=== PATIENT | male | born 1985 | race African-American/Black ===

== ENCOUNTER 2024-10-30 10:04 | Inpatient (IN) | payer BC, SELFPAY ==
[2024-10-30] VITALS (7 sets, daily range): BP systolic 118–146; BP diastolic 63–97; PULSE 61–87; RESP 14–20; TEMP 36.5–36.9; O2SAT 98–100
[2024-10-30 10:59] LABS: Glucose Point of Care > 500 mg/dl (65-105)
[2024-10-30 11:28] LABS: Base Excess ABG -6.1 mEq/l (+/-2.0); Carboxyhemoglobin 2.5 % THb (0-2.0); Fractional Inspired Oxygen 21 %; HCO3 ABG 19.4 mEq/l (22.0-26.0); Methemoglobin ABG 0.4 %THb (0-1.5); Oxygen Content ABG 21.5 %vol (16.0-22.0); Oxygen Saturation ABG 95.8 % (95.0-100.0); Oxyhemoglobin 92.2 % THb (90.0-100.0); PCO2 ABG 38.7 mmHg (35.0-45.0); PO2 ABG 85.4 mmHg (80.0-100.0); PO2 FiO2 Ratio Arterial Blood 4.07 %; Reduced Hemoglobin 4.9 %THb (0-5.0); Total Hemoglobin 16.6 g/dL (12.0-18.0); pH ABG 7.319 (7.350-7.450)
[2024-10-30 11:29] LABS: Device ROOM AIR; Modified Allen's Test Pass; Site Drawn RIGHT RADIAL
[2024-10-30] MEDS: Please add drug allergy info to patient profile. 1 EACH XX (11:29)
--- OUTSIDE RECORDS SUMMARY | 2024-10-30 11:30 | XMS_ITS | Data Portability ---
Author Organization [facility] BEAUNoam Rios Address [address] [place] [address] Care Team Providers Care Research Intern Name Role Phone AILYN METZGER Primary Care Provider Assessment No assessment recorded. Plan of Treatment Reminders Order Date Submit Date Provider Last Modified By Organization Details Last Modified Time Details Appointments ANY 15 2024 09:00A M Ailyn Metzger MD Not available Not available Not available Lab hsv (1+2) igg, serum 2023 024 [place] [facility], [address], [place], [address], 04/07/2024 11:15:26 urinalysi s macro (dipstick ) panel, urine 2023 024 [place] [facility], [address], [place], [address], 04/07/2024 09:14:31 basic metabolic 1998 panel, serum or plasma 2023 024 [place] [facility], [address], [place], [address], 04/07/2024 09:14:30 CBC w/ auto diff 2023 024 [place] [facility], [address], [place], [address], 02/26/2024 08:33:20 urinalysi s, dipstick 2023 024 [place] [facility] [address], [place], [address], 02/26/2024 08:33:19 CMP, serum or plasma 2023 024 [facility], [address], [place], [address], 02/26/2024 08:33:18 lipid panel, serum 2023 024 [facility], [address], [place], [address], 02/26/2024 08:33:17 HIV 1 + 2, meaningfu l use set 2023 024 [facility], [address], [place], [address], 02/29/2024 06:17:01 Hepatitis C IgG Ab, qual, serum 2023 024 [place] [facility], [address], [place], [address], 02/29/2024 06:16:56 chlamydia trachomat is + neisseria gonorrhoe ae + trichomon as vaginalis DNA panel, SHELBY+probe , unspecifi ed specimen 2023 024 [facility], [address], [place], [address], 02/29/2024 06:16:57 hsv (1+2) igg, serum 2023 024 [facility], [address], [place], [address], 02/29/2024 06:16:56 HBsAg (hepatiti s B surface Ag), EIA, serum 2023 024 [facility], [address], [place], [address], 02/29/2024 06:16:59 RPR (rapid plasma reagin), serum 2023 [facility], [address], [place], [address], 02/29/2024 06:16:59 HbA1c (hemoglob in A1c), blood 2023 [place] [facility], [address], [place], [address], 02/29/2024 06:16:58 albumin/c reatinine , mass ratio, urine 2023 [facility], [address], [place], [address], 02/29/2024 06:16:55 Referral orthopedi c surgeon referral - R. wrist pain 2023 [facility], [address], [place], [address], 08/18/2024 15:36:14 ophthalmo logist referral - Eye trauma 2023 [facility], [address], [place], [address], 03/21/2024 15:07:24 Procedures None recorded. Surgeries None recorded. Imaging None recorded. Medication Orders meloxicam 15 mg tablet 2023 [place] [id number], [address], [place], [id number], 04/06/2024 12:21:50 ofloxacin 0.3 % eye drops 2023 [place] [id number], [address], [place], [id number], 04/06/2024 11:28:23 Patient TargetsNo targets recorded. Patient Instructions Encounter Date Encounter Id Patient Instructions Last Modified By Organization Details Last Modified Time 02/25/2024 [id number] tetanus and diphtheria booster: care instructions oajao Not available 02/25/2024 11:04:29 Quitting Tobacco : Care Instructions oajao Not available 02/25/2024 11:04:29 ER report from [facility] Labs Ophthalmology Ofloxacin eye drops Stop smoking Stop EES ointment Dentist ER if his eye symptoms worsen over the weekend Follow up in 4-6 weeks oajao Not available 02/25/2024 11:21:50 04/06/2024 [id number] proteinuria: car e instructions oajao Not available 04/06/2024 12:14:38 Lab results from [facility] 02/20/2023 Xray and ER report from 02/2024 Labs Low fat, low cholesterol diet Follow up in 4 weeks oajao Not available 04/06/2024 12:24:23 Detailed discussion oajao Not available 04/06/2024 16:29:58 Reason for Referral Director Behavioral Health Referral for Pain of bilateral eyes Eye trauma Eye trauma Referring Physician: Ailyn Metzger, Internal Medicine, Encounter Date: 02/25/2024 Orthopedic Surgeon Referral for Pain of right wrist R. wrist pain R. wrist pain Referring Physician: Ailyn Metzger Internal Medicine, Encounter Date: 04/06/2024 Results Created Date Observation Date Name Description Value Unit Range Abnormal Flag Note LastModifiedBy Organization Detail LastModifiedTime 02/25/2002/26/2024 LIPID PANEL cholesterol, total 208 mg/dL 100-19 9 above high normal Not Available [facility] ([facility]) [address], [place], [address], 02/26/2024 08:33:17 02/25/20 24 02/26/2024 LIPID PANEL triglyceride s 90 mg/dL 0-149 Not Available [facility] ([facility]) [address] [facility], [place], [address], 02/26/2024 08:33:17 07/12/20 24 02/26/2024 LIPID PANEL HDL cholesterol 65 mg/dL >39 Not Available [facility]) [address] [place], [address], 02/26/2024 08:33:17 02/25/20 24 02/26/2024 LIPID PANEL VLDL cholesterol lawanda 16 mg/dL 5-40 Not Available [facility] ([facility]) [address] [place], [address], 02/26/2024 08:33:17 02/25/20 24 02/26/2024 LIPID PANEL LDL chol calc ([facility]) 127 mg/dL 0-99 above high normal Not Available [facility] ([facility]) [address] [facility], [place], [address], 02/26/2024 08:33:17 02/25/20 24 02/26/2024 COMP. METAB OLIC PANEL (14) glucose 100 mg/dL 70-99 above high normal Not Available [facility] ([facility]) [address] [place], [address], 02/26/2024 08:33:18 02/25/20 24 02/26/2024 COMP. METAB OLIC PANEL (14) BUN 17 mg/dL 6-20 Not Available [facility] ([facility]) [address] [place], [address], 02/26/2024 08:33:18 02/25/20 24 02/26/2024 COMP. METAB OLIC PANEL (14) creatinine 1.33 mg/dL 0.76-1 .27 above high normal Not Available [facility] ([facility]) [address] [place], [address], 02/26/2024 08:33:18 02/25/20 24 02/26/2024 COMP. METAB OLIC PANEL (14) eGFR 71 mL/mi n/1.7 3 >59 Not Available [facility] ([facility]) [address] [facility], [place], [address], 02/26/2024 08:33:18 02/25/20 24 02/26/2024 COMP. METAB OLIC PANEL (14) BUN/creatini ne ratio 13 9-20 Not Available [facility] ([facility]) [address], [place], [address], 02/26/2024 08:33:18 02/25/20 24 02/26/2024 COMP. METAB OLIC PANEL (14) sodium 142 mmol/ L 134-14 4 Not Available [facility] ([facility]) [address] [facility], [place], [address], 02/26/2024 08:33:18 02/25/20 24 02/26/2024 COMP. METAB OLIC PANEL (14) potassium 4.5 mmol/ L 3.5-5. 2 Not Available [facility] ([facility]) [address] [facility], [place], [address], 02/26/2024 08:33:18 02/25/20 24 02/26/2024 COMP. METAB OLIC PANEL (14) chloride 100 mmol/ L 96-106 Not Available [facility] ([facility]) [address] [facility], [place], [address], 02/26/2024 08:33:18 02/25/20 24 02/26/2024 COMP. METAB OLIC PANEL (14) carbon dioxide, total 24 mmol/ L 20-29 Not Available [facility] ([facility]) [address] [facility], [place], [address], 02/26/2024 08:33:18 02/25/20 24 02/26/2024 COMP. METAB OLIC PANEL (14) calcium 10.8 mg/dL 8.7-10 .2 above high normal Not Available [facility] ([facility]) [address] [facility], [place], [address], 02/26/2024 08:33:18 02/25/20 24 02/26/2024 COMP. METAB OLIC PANEL (14) protein, total 7.8 g/dL 6.0-8. 5 Not Available [facility] ([facility]) [address], [place], [address], 02/26/2024 08:33:18 02/25/20 24 02/26/2024 COMP. METAB OLIC PANEL (14) albumin 5.0 g/dL 4.1-5. 1 Not Available [facility] ([facility]) [address], [place], [address], 02/26/2024 08:33:18 02/25/20 24 02/26/2024 COMP. METAB OLIC PANEL (14) globulin, total 2.8 g/dL 1.5-4. 5 Not Available [facility] ([facility]) [address] [facility], [place], [address], 02/26/2024 08:33:18 02/25/20 24 02/26/2024 COMP. METAB OLIC PANEL (14) bilirubin, total 0.5 mg/dL 0.0-1. 2 Not Available [facility] ([facility]) [address] [facility], [place], [address], 02/26/2024 08:33:18 02/25/20 24 02/26/2024 COMP. METAB OLIC PANEL (14) alkaline phosphatase 69 IU/L 44-121 Not Available [facility] ([facility]) [address], [place], [address], 02/26/2024 08:33:18 02/25/20 24 02/26/2024 COMP. METAB OLIC PANEL (14) AST (SGOT) 22 IU/L 0-40 Not Available [facility] ([facility]) [address] [facility], [place], [address], 02/26/2024 08:33:18 02/25/20 24 02/26/2024 COMP. METAB OLIC PANEL (14) ALT (SGPT) 31 IU/L 0-44 Not Available [facility] ([facility]) [address] [facility] [facility], [place], [address], 02/26/2024 08:33:18 02/25/20 24 02/26/2024 MICRO SCOPI C EXAMI NATIO N WBC None seen /hpf 0-5 Not Available [facility] ([facility]) [address] [facility], [place], [address], 02/26/2024 08:33:18 02/25/20 24 02/26/2024 MICRO SCOPI C EXAMI NATIO N RBC None seen /hpf 0-2 Not Available [facility] ([facility]) [address] [facility], [place], [address], 02/26/2024 08:33:18 02/25/20 24 02/26/2024 MICRO SCOPI C EXAMI NATIO N epithelial cells (non renal) None seen /hpf 0-10 Not Available [facility] ([facility]) [address] [facility], [place], [address], 02/26/2024 08:33:18 02/25/20 24 02/26/2024 MICRO SCOPI C EXAMI NATIO N casts None seen /lpf nonese en Not Available [facility] ([facility]) [address] [facility], [place], [address], 02/26/2024 08:33:18 02/25/20 24 02/26/2024 MICRO SCOPI C EXAMI NATIO N bacteria None seen nonese en/few Not Available [facility] ([facility]) [address], [place], [address], 02/26/2024 08:33:18 02/25/20 24 02/26/2024 URINA LYSIS , ROUTI NE specific gravity >=1.03 0 1.005- 1.030 abnormal Not Available [facility] ([facility]) [address], [place], [address], 02/26/2024 08:33:19 02/25/20 24 02/26/2024 URINA LYSIS , ROUTI NE pH 5.5 5.0-7. 5 Not Available [facility] ([facility]) [address] [facility], [place], [address], 02/26/2024 08:33:19 02/25/20 24 02/26/2024 URINA LYSIS , ROUTI NE urine-color YELLOW yellow Not Available [facility] ([facility]) [address], [place], [address], 02/26/2024 08:33:19 02/25/20 24 02/26/2024 URINA LYSIS , ROUTI NE appearance CLEAR clear Not Available [facility] ([facility]) [address], [place], [address], 02/26/2024 08:33:19 02/25/20 24 02/26/2024 URINA LYSIS , ROUTI NE WBC esterase NEGATI VE negati ve Not Available [facility] ([facility]) [address], [place], [address], 02/26/2024 08:33:19 02/25/20 24 02/26/2024 URINA LYSIS , ROUTI NE protein 1+ negati ve/tra ce abnormal Not Available [facility] ([facility]) [address] [place], [address], 02/26/2024 08:33:19 02/25/20 24 02/26/2024 URINA LYSIS , ROUTI NE glucose NEGATI VE negati ve Not Available [facility] ([facility]) [address] [place], [address], 02/26/2024 08:33:19 02/25/20 24 02/26/2024 URINA LYSIS , ROUTI NE ketones NEGATI VE negati ve Not Available [facility] ([facility]) [address], [place], [address], 02/26/2024 08:33:19 02/25/20 24 02/26/2024 URINA LYSIS , ROUTI NE occult blood NEGATI VE negati ve Not Available [facility] ([facility]) [address], [place], [address], 02/26/2024 08:33:19 02/25/20 24 02/26/2024 URINA LYSIS , ROUTI NE bilirubin NEGATI VE negati ve Not Available [facility] ([facility]) [address], [place], [address], 02/26/2024 08:33:19 02/25/20 24 02/26/2024 URINA LYSIS , ROUTI NE urobilinogen ,semi-qn 0.2 mg/dL 0.2-1. 0 Not Available [facility] ([facility]) [address], [place], [address], 02/26/2024 08:33:19 02/25/20 24 02/26/2024 URINA LYSIS , ROUTI NE nitrite, urine NEGATI VE negati ve Not Available [facility] ([facility]) [address] [place], [address], 02/26/2024 08:33:19 02/25/20 24 02/26/2024 URINA LYSIS , ROUTI NE microscopic examination SEE BELOW: Micro scopi c was indic ated and was perfo rmed. Not Available [facility] ([facility]) [address] [place], [address], 02/26/2024 08:33:19 02/25/20 24 02/26/2024 CBC WITH DIFFE RENTI AL/PL ATELE T WBC 4.8 x10e3 /uL 3.4-10 .8 Not Available [facility] ([facility]) [address] [place], [address], 02/26/2024 08:33:20 02/25/20 24 02/26/2024 CBC WITH DIFFE RENTI AL/PL ATELE T RBC 5.43 x10e6 /uL 4.14-5 .80 Not Available [facility] ([facility]) [address], [place], [address], 02/26/2024 08:33:20 02/25/20 24 02/26/2024 CBC WITH DIFFE RENTI AL/PL ATELE T hemoglobin 17.2 g/dL 13.0-1 7.7 Not Available [facility] ([facility]) [address] [place], [address], 02/26/2024 08:33:20 02/25/20 24 02/26/2024 CBC WITH DIFFE RENTI AL/PL ATELE T hematocrit 50.2 % 37.5-5 1.0 Not Available [facility] ([facility]) [address] [place], [address], 02/26/2024 08:33:20 02/25/20 24 02/26/2024 CBC WITH DIFFE RENTI AL/PL ATELE T MCV 92 fL 79-97 Not Available [facility] ([facility]) [address] [place], [address], 02/26/2024 08:33:20 02/25/20 24 02/26/2024 CBC WITH DIFFE RENTI AL/PL ATELE T MCH 31.7 pg 26.6-3 3.0 Not Available [facility] ([facility]) [address] [place], [address], 02/26/2024 08:33:20 02/25/20 24 02/26/2024 CBC WITH DIFFE RENTI AL/PL ATELE T MCHC 34.3 g/dL 31.5-3 5.7 Not Available [facility] ([facility]) [address] [place], [address], 02/26/2024 08:33:20 02/25/20 24 02/26/2024 CBC WITH DIFFE RENTI AL/PL ATELE T RDW 12.4 % 11.6-1 5.4 Not Available [facility] ([facility]) [address], [place], [address], 02/26/2024 08:33:20 02/25/20 24 02/26/2024 CBC WITH DIFFE RENTI AL/PL ATELE T platelets 262 x10e3 /uL 150-45 0 Not Available [facility] ([facility]) [address] [facility], [place], [address], 02/26/2024 08:33:20 02/25/20 24 02/26/2024 CBC WITH DIFFE RENTI AL/PL ATELE T neutrophils 59 % notest ab. Not Available [facility] ([facility]) [address], [place], [address], 02/26/2024 08:33:20 02/25/20 24 02/26/2024 CBC WITH DIFFE RENTI AL/PL ATELE T lymphs 27 % notest ab. Not Available [facility] ([facility]) [address], [place], [address], 02/26/2024 08:33:20 02/25/20 24 02/26/2024 CBC WITH DIFFE RENTI AL/PL ATELE T monocytes 10 % notest ab. Not Available [facility] ([facility]) [address], [place], [address], 02/26/2024 08:33:20 02/25/20 24 02/26/2024 CBC WITH DIFFE RENTI AL/PL ATELE T eos 4 % notest ab. Not Available [facility] ([facility]) [address], [place], [address], 02/26/2024 08:33:20 02/25/20 24 02/26/2024 CBC WITH DIFFE RENTI AL/PL ATELE T basos 0 % notest ab. Not Available [facility] ([facility]) [address], [place], [address], 02/26/2024 08:33:20 02/25/20 24 02/26/2024 CBC WITH DIFFE RENTI AL/PL ATELE T neutrophils (absolute) 2.8 x10e3 /uL 1.4-7. 0 Not Available [facility] ([facility]) [address], [place], [address], 02/26/2024 08:33:20 02/25/20 24 02/26/2024 CBC WITH DIFFE RENTI AL/PL ATELE T lymphs (absolute) 1.3 x10e3 /uL 0.7-3. 1 Not Available [facility] ([facility]) [address], [place], [address], 02/26/2024 08:33:20 02/25/20 24 02/26/2024 CBC WITH DIFFE RENTI AL/PL ATELE T monocytes(ab solute) 0.5 x10e3 /uL 0.1-0. 9 Not Available [facility] ([facility]) [address], [place], [address], 02/26/2024 08:33:20 02/25/20 24 02/26/2024 CBC WITH DIFFE RENTI AL/PL ATELE T eos (absolute) 0.2 x10e3 /uL 0.0-0. 4 Not Available [facility] ([facility]) [address] [place], [address], 02/26/2024 08:33:20 02/25/20 24 02/26/2024 CBC WITH DIFFE RENTI AL/PL ATELE T baso (absolute) 0.0 x10e3 /uL 0.0-0. 2 Not Available [facility] ([facility]) [address] [place], [address], 02/26/2024 08:33:20 02/25/20 24 02/26/2024 CBC WITH DIFFE RENTI AL/PL ATELE T immature granulocytes 0 % notest ab. Not Available [facility] ([facility]) [address], [place], [address], 02/26/2024 08:33:20 02/25/20 24 02/26/2024 CBC WITH DIFFE RENTI AL/PL ATELE T immature grans (abs) 0.0 x10e3 /uL 0.0-0. 1 Not Available [facility] ([facility]) [address], [place], [address], 02/26/2024 08:33:20 02/25/20 24 02/26/2024 ALBUM IN/CR EATIN INE RATIO ,URIN E creatinine, urine 334.9 mg/dL notest ab. Not Available [facility] ([facility]) [address], [place], [address], 02/29/2024 06:16:55 02/25/20 24 02/26/2024 ALBUM IN/CR EATIN INE RATIO ,URIN E albumin, urine 83.1 ug/mL notest ab. Not Available [facility] ([facility]) [address], [place], [address], 02/29/2024 06:16:55 02/25/20 24 02/26/2024 ALBUM IN/CR EATIN INE RATIO ,URIN E alb/creat ratio 25 mg/g_ creat 0-29 Abena l: 0 - 29 Moder ately incre ased: 30 - 300 Sever odilia incre ased: >300 Not Available [facility] ([facility]) [address], [place], [address], 02/29/2024 06:16:55 02/25/20 24 02/26/2024 HCV ANTIB TANA hep C virus Ab NON REACTI VE nonrea ctive HCV antib tana alone does not diffe renti ate betwe en previ ously resol kely infec tion and activ e infec tion. Equiv ocal and React elida HCV antib tana resul ts shoul d be follo wed up with an HCV RNA test to suppo rt the diagn osis of activ e HCV infec tion. Not Available [facility] ([facility]) [address], [place], [address], 02/29/2024 06:16:56 02/25/20 24 02/26/2024 HSV 1 AND 2 AB, IGG hsv 1 IgG, type spec <0.91 index 0.00-0 .90 Negat elida <0.91 Equiv ocal 0.91 - 1.09 Posit elida >1.09 Note: Negat elida indic ates no antib odies detec gabriel to HSV-1 . Equiv ocal may sugge st early infec tion. If clini kelly appro priat e, retes t at later date. Posit elida indic ates antib odies detec gabriel to HSV-1 . Not Available [facility] ([facility]) [address] [facility], [place], [address], 02/29/2024 06:16:56 02/25/20 24 02/26/2024 HSV 1 AND 2 AB, IGG hsv 2 IgG, type spec 2.84 index 0.00-0 .90 above high normal Negat elida <0.91 Equiv ocal 0.91 - 1.09 Posit elida >1.09 HSV-2 Antib tana Inter preta tion: Curre nt guide lines and recom menda tions do not recom mend routi ne scree rogelio for HSV-2 in asymp tomat ic indiv idual s, inclu ding those that are pregn ant. A negat elida antib tana resul t indic ates no detec table antib odies to HSV-2 were found . If recen t expos ure is suspe cted, retes t in 4 to 6 weeks . Equiv ocal sampl es shoul d be retes gabriel in 4 to 6 weeks . A posit elida resul t indic ates the prese nce of detec table IgG antib tana to HSV-2 . FALSE POSIT ELIDA RESUL TS MAY OCCUR . Repea t testi ng, or testi ng by a diffe mounikat darci coleman, may be indic ated in some setti ngs (e.g. patie nts with low likel ihood of HSV infec tion) . If clini kelly appro priat e, retes t 4 to 6 weeks later . HSV-2 IgG antib tana testi ng resul ts shoul d be clini kelly corre lated . Not Available [facility] ([facility]) [address] [place], [address], 02/29/2024 06:16:56 02/25/2002/29/2024 CT, NG, TRICH VAG BY SHELBY chlamydia by SHELBY NEGATI VE negati ve Not Available [facility] ([facility]) [address] [place], [address], 02/29/2024 06:16:57 02/25/20 24 02/29/2024 CT, NG, TRICH VAG BY SHELBY gonococcus by HSELBY NEGATI VE negati ve Not Available [facility] ([facility]) [address] [place], [address], 02/29/2024 06:16:57 02/25/20 24 02/29/2024 CT, NG, TRICH VAG BY SHELBY trich vag by SHELBY NEGATI VE negati ve Not Available [facility] ([facility]) [address] [place], [address], 02/29/2024 06:16:57 02/25/20 24 02/26/2024 HEMOG LOBIN A1C hemoglobin A1C 5.8 % 4.8-5. 6 above high normal Predi abete s: 5.7 - 6.4 Diabe gato: >6.4 Glyce kristin contr ol for adult s with diabe gato: <7.0 Not Available [facility] ([facility]) [address] [place], [address], 02/29/2024 06:16:58 02/25/20 24 02/26/2024 HBSAG SCREE N HBsAg screen NEGATI VE negati ve Not Available [facility] ([facility]) [address] [place], [address], 02/29/2024 06:16:58 02/25/20 24 02/26/2024 RPR, RFX QN RPR/C ONFIR M TP RPR REACTI VE nonrea ctive abnormal Not Available [facility] ([facility]) [address] [facility], [place], [address], 02/29/2024 06:16:59 02/25/20 24 02/26/2024 RPR QN+TP ABS RPR, quant. 1:2 titer nonrea <1:1 above high normal Not Available [facility] ([facility]) [address] [place], [address], 02/29/2024 06:17:00 02/25/20 24 02/26/2024 RPR QN+TP ABS interpretati on: Commen t [place] lis: RPR with Refle x to RPR Titer and Trepo nemal Antib odies , Tradi kosta l Scree rogelio and Diagn osis Algor ithm ----- ----- ----- ----- ----- ----- ----- ----- ----- ----- ----- ----- Trepo nemal RPR RPR, Qn Ab Final Inter preta tion ----- --- ----- ---- ----- ----- ----- ----- ----- ----- ---- Non N/A N/A No labor atory evide nce React elida of [place] lis. Retes t in 2-4 weeks if recen t expos ure us suspe cted. ----- --- ----- ---- ----- ----- ----- ----- ----- ----- ---- React elida >/=1: 1 Non Nontr epone mal antib odies React elida detec gabriel. [place] lis unlik odilia; biolo gical false posit elida possi ble. Retes t in 2-4 weeks if recen t expos ure is suspe cted. ----- --- ----- ---- ----- ----- ----- ----- ----- ----- ---- React elida >/=1: 1 React elida Trepo nemal and nontr epone mal antib odies detec gabriel. Consi stent with past or curre nt (pote ntial early ) syphi lis. Not Available [facility] ([facility]) [address] [place], [address], 02/29/2024 06:17:00 02/25/20 24 02/28/2024 RPR QN+TP ABS treponema pallidum antibodies Reacti ve nonrea ctive abnormal Not Available [facility] ([facility]) [address] [place], [address], 02/29/2024 06:17:00 02/25/20 24 02/26/2024 HIV AB/P2 4 AG WITH REFLE X HIV Ab/P24 Ag screen NON REACTI VE nonrea ctive HIV-1 /HIV- 2 antib odies and HIV-1 p24 antig en were NOT detec gabriel. There is no labor atory evide nce of HIV infec tion. HIV Negat elida Not Available [facility] ([facility]) [address] [place], [address], 02/29/2024 06:17:01 04/06/20 24 04/07/2024 BASIC METAB OLIC PANEL (7) glucose 90 mg/dL 70-99 Not Available [facility] ([facility]) [address] [place], [address], 04/07/2024 09:14:30 04/06/20 24 04/07/2024 BASIC METAB OLIC PANEL (7) BUN 18 mg/dL 6-20 Not Available [facility] ([facility]) [address] [facility], [place], [address], 04/07/2024 09:14:30 04/06/20 24 04/07/2024 BASIC METAB OLIC PANEL (7) creatinine 1.16 mg/dL 0.76-1 .27 Not Available [facility] ([facility]) [address] [facility], [place], [address], 04/07/2024 09:14:30 04/06/20 24 04/07/2024 BASIC METAB OLIC PANEL (7) eGFR 83 mL/mi n/1.7 3 >59 Not Available [facility] ([facility]) [address] [facility], [place], [address], 04/07/2024 09:14:30 04/06/20 24 04/07/2024 BASIC METAB OLIC PANEL (7) BUN/creatini ne ratio 16 9-20 Not Available [facility] ([facility]) [address] [facility], [place], [address], 04/07/2024 09:14:30 04/06/20 24 04/07/2024 BASIC METAB OLIC PANEL (7) sodium 141 mmol/ L 134-14 4 Not Available [facility] ([facility]) [address] [facility], [place], [address], 04/07/2024 09:14:30 04/06/20 24 04/07/2024 BASIC METAB OLIC PANEL (7) potassium 5.2 mmol/ L 3.5-5. 2 Not Available [facility] ([facility]) [address] [facility], [place], [address], 04/07/2024 09:14:30 04/06/20 24 04/07/2024 BASIC METAB OLIC PANEL (7) chloride 100 mmol/ L 96-106 Not Available [facility] ([facility]) [address], [place], [address], 04/07/2024 09:14:30 04/06/20 24 04/07/2024 BASIC METAB OLIC PANEL (7) carbon dioxide, total 25 mmol/ L 20-29 Not Available [facility] ([facility]) [address] [facility], [place], [address], 04/07/2024 09:14:30 04/06/20 24 04/07/2024 URINA LYSIS , ROUTI NE specific gravity 1.020 1.005- 1.030 Not Available [facility] ([facility]) [address] [facility], [place], [address], 04/07/2024 09:14:31 04/06/2004/07/2024 URINA LYSIS , ROUTI NE pH 6.0 5.0-7. 5 Not Available [facility] ([facility]) [address] [facility], [place], [address], 04/07/2024 09:14:31 04/06/20 24 04/07/2024 URINA LYSIS , ROUTI NE urine-color YELLOW yellow Not Available [facility] ([facility]) [address] [facility], [place], [address], 04/07/2024 09:14:31 04/06/2004/07/2024 URINA LYSIS , ROUTI NE appearance CLEAR clear Not Available [facility] ([facility]) [address] [facility], [place], [address], 04/07/2024 09:14:31 04/06/20 24 04/07/2024 URINA LYSIS , ROUTI NE WBC esterase NEGATI VE negati ve Not Available [facility] ([facility]) [address] [facility], [place], [address], 04/07/2024 09:14:31 04/06/20 24 04/07/2024 URINA LYSIS , ROUTI NE protein NEGATI VE negati ve/tra ce Not Available [facility] ([facility]) [address] [place], [address], 04/07/2024 09:14:31 04/06/20 24 04/07/2024 URINA LYSIS , ROUTI NE glucose NEGATI VE negati ve Not Available [facility] ([facility]) [address] [place], [address], 04/07/2024 09:14:31 04/06/20 24 04/07/2024 URINA LYSIS , ROUTI NE ketones NEGATI VE negati ve Not Available [facility] ([facility]) [address] [place], [address], 04/07/2024 09:14:31 04/06/20 24 04/07/2024 URINA LYSIS , ROUTI NE occult blood NEGATI VE negati ve Not Available [facility] ([facility]) [address] [place], [address], 04/07/2024 09:14:31 04/06/20 24 04/07/2024 URINA LYSIS , ROUTI NE bilirubin NEGATI VE negati ve Not Available [facility] ([facility]) [address] [place], [address], 04/07/2024 09:14:31 04/06/20 24 04/07/2024 URINA LYSIS , ROUTI NE urobilinogen ,semi-qn 0.2 mg/dL 0.2-1. 0 Not Available [facility] ([facility]) [address] [place], [address], 04/07/2024 09:14:31 04/06/20 24 04/07/2024 URINA LYSIS , ROUTI NE nitrite, urine NEGATI VE negati ve Not Available [facility] ([facility]) [address] [facility] [place], [address], 04/07/2024 09:14:31 04/06/20 24 04/07/2024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
--- OUTSIDE RECORDS SUMMARY | 2024-10-30 11:31 | XMS_ITS | Clinical Summary ---
Author Organization [facility] Address [address] [place] [address] Phone Care Team Providers Care Charge Rn Name Role Phone Provider, None Primary Care Provider Unavailabl e Allergies No known active allergies Medications No known medications Social History Tobacco Use Types Packs/Day Years Used Date Smoking Tobacco: Never Assessed Sex and Gender Information Value Date Recorded Sex Assigned at Not on file Legal Sex Male 9:42 AM CDT Gender Identity Not on file Sexual Orientation Not on file Last Filed Vital Signs Vital Sign Reading Time Taken Comments Blood Pressure 143/77 03/22/2022 9:49 AM CDT Pulse 66 03/22/2022 9:49 AM CDT Temperature 36.2 C (97.2 F) 03/22/2022 9:49 AM CDT Respiratory Rate 15 03/22/2022 9:49 AM CDT Oxygen Saturation 99% 03/22/2022 9:49 AM CDT Inhaled Oxygen Concentration - - Weight 79.4 kg (175 lb) 03/22/2022 9:49 AM CDT Height 167.6 cm (5' 6 ) 03/22/2022 9:49 AM CDT Body Mass Index 28.25 03/22/2022 9:49 AM CDT Plan of Treatment Not on file Care Teams Charge Rn Relationship Specialty Start Date End Date Provider, None [place] PCP - General 03/22/22
[2024-10-30] MEDS: SODIUM CHLORIDE 0.9% IV 1,000 ML 999 ML IV CONT ×3 (11:34→14:25)
[2024-10-30 11:37] LABS: Basophils Percent Auto 0.5 % (0.2-1.2); Eosinophils Absolute Auto 0.1 K/mm3 (0-0.3); Hemoglobin 16.8 g/dL (14.0-18.0); Immature Granulocyte Absolute 0.01 K/mm3 (0.00-0.031); Immature Granulocyte Percent A 0.2 % (0-0.5); Lymphocytes Absolute Auto 1.95 K/mm3 (0.9-3.2); Lymphocytes Percent Auto 31.6 % (18.3-44.2); Mean Corpuscular HGB Conc 37.3 g/dl (32-36); Mean Corpuscular Hemoglobin 31.2 pg (26-34); Mean Corpuscular Volume 83.6 fl (80-100); Mean Platelet Volume 10.4 fl (7.4-10.4); Monocytes Absolute Auto 0.3 K/mm3 (0.1-0.6); Monocytes Percent Auto 5.2 % (2.6-8.5); Neutrophils Absolute Auto 3.8 K/mm3 (1.3-6.7); Neutrophils Percent Auto 61.5 % (45.5-73.1); Platelet Count Result 276 k/mm3 (150-375); Red Blood Count 5.38 M/mm3 (4.6-6.20); Red Cell Distribution Width 11.2 % (11.5-14.5); White Blood Count 6.2 K/mm3 (4.5-10.0)
[2024-10-30 11:39] LABS: Add Urine Microscopic? NO; Appearance Urine Clear (Clear); Bilirubin Urine Negative (Negative); Blood Urine Negative (Negative); Color Urine Yellow (Yellow); Glucose Urine UA 3+ mg/dL (Negative); Ketones Urine 3+ mg/dL (Negative); Leukocyte Esterase Ur Negative LEU/UL (Negative); Nitrate Urine Negative (Negative); Protein Urine Negative (Negative); Urobilinogen Urine 0.2 mg/dL (<2.0)
[2024-10-30 12:07] LABS: Beta-Hydroxybutyrate/Acetoacetate 4.25 mmol/L (0.02-0.27)
[2024-10-30 12:16] LABS: Alanine Aminotransferase 30 U/L (6-50); Albumin Level 4.8 g/dL (3.5-5.1); Alkaline Phosphatase 203 U/L (38-126); Anion Gap 20 mmol/L (4-12); Aspartate Amino Transferase 18 U/L (17-59); Bilirubin,Total 0.7 mg/dL (0.2-1.3); Blood Urea Nitrogen 27 mg/dL (9-20); Calcium 9.8 mg/dL (8.4-10.2); Carbon Dioxide 20 mmol/L (22-30); Chloride 87 mmol/L (98-107); Estimated CRCL calculation 59 ml/min; Estimated Glomerular Filt Rate 56; Glucose 857 mg/dL (65-110); Magnesium 2.1 mg/dL (1.6-2.3); Phosphorus 7.2 mg/dL (2.5-4.5); Potassium 5.6 mmol/L (3.4-5.0); Sodium 127 mmol/L (137-145)
[2024-10-30 12:57] LABS: Glucose Point of Care > 500 mg/dl (65-105)
[2024-10-30] MEDS: INSULIN HUMAN REGULAR (*BKC) 100 UNITS/ML 10.6 UNITS IV PUSH (13:20)
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
--- OUTSIDE RECORDS SUMMARY | 2024-10-30 13:58 | XMS_ITS | Clinical Summary ---
Author Organization [facility] Address [address] [place] [address] Phone Care Team Providers Care Fiber Design Engineer Name Role Phone Provider, None Primary Care [...] of Treatment Not on file Care Teams Fiber Design Engineer Relationship Specialty Start Date End Date Provider, None [place] PCP - General 03/22/22
[2024-10-30 14:00] LABS: Glucose Point of Care 472 mg/dl (65-105)
--- NOTE | 2024-10-30 14:10 | PC.NURSE ---
This patient, Holland Wells, was admitted to Intensive Care Unit-9. Patient/family oriented to hospital policies and general routines including ID bracelet, bed and alarms, visiting hours, pain management, procedures, bathroom and other care routines, personal items, smoking policy, room service/diet, and visiting hours. Information on how to activate the Rapid Response Team has been discussed. Patient/Family are encouraged to report perceived risks to care and to ask questions if they do not understand what they are told or what they should do.
[2024-10-30] MEDS: SODIUM CHLORIDE 0.9% IV 1,000 ML 150 ML IV CONT (14:25)
[2024-10-30] MEDS: INSULIN HUMAN REGULAR (*BKC) 100 UNITS in SODIUM CHLORIDE 0.9% IV 99 ML 7 UNITS IV CONT (14:26)
--- NOTE | 2024-10-30 14:26 | WPDCNINT ---
Assessment and Plan Assessment and plan (1) DKA (diabetic ketoacidosis): Code(s): E11.10 - Type 2 diabetes mellitus with ketoacidosis without coma Status: Acute Assessment and Plan: 10/30: Presented the ED with complains of polyuria, polydipsia for the last 3-4 days prior to admission. Blood sugars were 857, positive beta hydroxybutyrate, anion gap of 20, acute kidney injury -patient was given 2 L IV fluid bolus in the ED, started on insulin infusion per DKA protocol -will give additional 1 L IV fluid bolus in the ICU -continue insulin infusion -BMPs per DKA protocol -once anion gap closes will transition to long-acting insulin and sliding scale insulin -NPO except ice chips -hemoglobin A1c has been obtained and pending (2) Acute kidney injury: Code(s): N17.9 - Acute kidney failure, unspecified Status: Acute Assessment and Plan: Patient with acute kidney injury, creatinine of 1.43, BUN 27, likely related to dehydration, polyuria due to DKA -patient being fluid resuscitated -continue to monitor urine output, renal function and electrolytes (3) Tobacco use: Code(s): Z72.0 - Tobacco use Status: Acute Assessment and Plan: Have counseled patient on cessation of tobacco use, he stated he is going to think about it (4) Electrolyte imbalance: Code(s): E87.8 - Other disorders of electrolyte and fluid balance, not elsewhere classified Status: Acute Assessment and Plan: Hyponatremia likely related to DKA Hyperkalemia likely related to acidosis secondary to DKA Continue to monitor with fluid resuscitation and insulin infusion Plan DVT prophylaxis: Lovenox Stress ulcer prophylaxis: Not indicated Nutrition: Ice chips only Code Status: Full code Critical Care Time Spent: 44 minutes Discussed with patient updated with his condition and plan of care. He is aware that he is going to be on an insulin drip, no diet for now except ice chips. Once his acidosis and gap closes we will start him on long-acting and short-acting insulin. I answered all his questions Due to a high probability of clinically significant, life threatening deterioration, the patient required my highest level of preparedness to intervene emergently and I personally spent this critical care time directly and personally managing the patient. This critical care time included obtaining a history; examining the patient; pulse oximetry; ordering and review of studies; arranging urgent treatment with development of a management plan; evaluation of patient's response to treatment; frequent reassessment; and discussions with other providers. It was exclusive of separately billable procedures and treating other patients and teaching time. Please see Assessment and Plan section and the rest of the note for further information on patient assessment and treatment This dictation may have been done utilizing a voice recognition system. Attempts have been made to correct errors. However, there may be uncorrected grammatical, spelling, and recognitions errors present. Structural Design Engineer Consult Note Consult date: 10/30/24 Reason for consult: Diabetic ketoacidosis, polyuria, polydipsia, fatigue HPI: Holland Wells is a 39 year old male with past medical history of diabetes which was diagnosed in 2019, he was on long-acting and short-acting insulin but after which it was diet controlled and he has not required insulin since then. Patient denies any hypertension, thyroid problems,,lung issues (had asthma as a kid but no more), denies any surgeries. Patient presented the ED on 10/30/2024 with complains of polydipsia, polyuria, fatigue for the last 3 days. Patient has moved into the area in [place] 1 week back, incarcerated in [place] and is originally from [place], [place]. Patient is here to see his son. Patient states he smokes about 2 to 2 and half packs per week, drinks alcohol but has not had anything to drink in the last week. Denies illicit drug use. Patient was given 2 L IV fluids in the ER, started on insulin infusion per DKA protocol and transferred to the ICU for further management. Labs in the ED: WBC 6.2, hemoglobin 16.8, platelets 276, sodium 127, potassium 5.6, chloride 87, CO2 20, BUN 27, creatinine 1.43, blood sugars 857, elevated beta hydroxybutyrate, anion gap of 20. UA showed 3+ glucose and 3+ ketones. Patient seen and examined in the ICU upon arrival. Very pleasant gentleman currently denies any abdominal pain, nausea, vomiting. He states he feels better after the IV fluids. Denies any chest pain or shortness of breath, currently on room air, hemodynamically stable. Requesting for a urinal. Above history was obtained from the patient. He has recently moved to [place] 1 week ago. He was incarcerated in [place] and was just released a week back. He is originally from [facility] Review of Systems Review of Systems: All systems reviewed & are unremarkable except as noted in HPI and below PMFSH Past Medical History Medical History (Updated 10/30/24 @ 14:36 by Asha Schwartz MD) Diabetes Surgical History Surgical History (Updated 10/30/24 @ 13:37 by Dionisio Yang MD) No history of previous surgery Social History Social History Alcohol intake: current Substance use: former Substance use type: crack/cocaine Do You Feel Safe in your Home?: Yes Lack of Transportation: YES Lack of Food: Never True Current Housing: I Have Housing Concerned About Future Housing: No Difficulty Paying Gas/Electric Bills: No Difficulty Paying for Meds: No Currently Unemployed: No Education: Decline to Answer Difficulty w/ Childcare or Family Care: No Spiritual care concerns: No Meds Home Medications and Allergies Allergies Allergy/AdvReac Type Severity Reaction Status Date / Time No Known Allergies Allergy Verified 10/30/24 11:34 Vital Signs Vital Signs - 24 hr 10/30/24 10:55 Temperature 97.7 F Pulse Rate 76 Respiratory Rate 17 Blood Pressure 146/97 H Pulse Oximetry 98 Oxygen Delivery Room Air Exam Narrative: General: Pleasant, young gentleman in no acute distress HEENT:? Pupils equal and reactive, sclera is clear, dry oral mucosa Neck:? Supple Respiratory:? Clear to auscultation bilaterally, adequate air entry, no wheezing Cardiac:? S1-S2 normal, regular rate and rhythm Abdomen:? Soft, nontender, nondistended, normoactive bowel sound Extremities:? No edema, palpable pedal pulses Neuro:? Patient is awake, alert, oriented, able to answer questions appropriately and moves all extremities spontaneously Skin:? Multiple tattoos Psych:? Normal mentation and affect Results Labs 10/30/24 11:19 10/30/24 11:19 Labs: Short CBC 10/30/24 Range/Units 11:19 WBC 6.2 (4.5-10.0) K/mm3 Hgb 16.8 (14.0-18.0) g/dL Hct 45.0 (42.0-52.0) % Plt Count 276 (150-375) k/mm3 BMP 10/30/24 11:19 Sodium 127 L Potassium 5.6 H Chloride 87 L Carbon Dioxide 20 L BUN 27 H Creatinine 1.43 H Glucose 857 H* Calcium 9.8 Liver Function 10/30/24 Range/Units 11:19 Total Bilirubin 0.7 (0.2-1.3) mg/dL AST 18 (17-59) U/L ALT 30 (6-50) U/L Alkaline Phosphatase 203 H (38-126) U/L Albumin 4.8 (3.5-5.1) g/dL Urine 10/30/24 Range/Units 11:19 Urine Color Yellow (Yellow) Urine Appearance Clear (Clear) Urine pH 5.0 (5.0-9.0) Ur Specific [place] 1.030 (1.001-1.035) Urine Protein Negative (Negative) mg/dL Urine Glucose (UA) 3+ H (Negative) mg/dL Quality VTE Prophylaxis VTE prophylaxis: pharmacologic ordered Hospitalist [facility] Advance Care Plan I have confirmed that the patient's Advanced Care Plan is present, code status is documented, or surrogate decision maker is listed in patient medical record.: Yes Medication Reconciliation I have utilized all available resources to obtain, update and review the patients current medications (includes all prescriptions, OTC, herbals, cannabis, and nutritional supplements).: Yes
[2024-10-30 14:42] LABS: Hemoglobin A1C 10.2 % (<5.7)
[2024-10-30 15:13] LABS: Glucose Point of Care 413 mg/dl (65-105)
[2024-10-30 15:51] LABS: Influenza A QL RT-PCR Negative (Negative); Influenza B QL RT-PCR Negative (Negative); RSV RNA, RT-PCR Negative (Negative); SARS-CoV-2 RNA PCR Negative (Negative)
--- NOTE | 2024-10-30 15:59 | P.HP_ITS ---
H&P: HPI History of Present Illness Date/Time: 10/30/24 15:59 Chief Complaint: weakness, increased urination, fatigue, dry mouth Narrative: This is a 39-year-old male with a significant past medical history of diabetes which has been diet controlled who presented to the emergency room with increased urination, fatigue, dry mouth for the last 3-4 days. Patient states that he has history of diabetes but has always been diet controlled. Denies any nausea, vomiting, diarrhea, abdominal pain, chest pain, shortness a breath, fever, chills. Workup in the hospital included initial labs which showed a normal white blood cell count of 6.2, pH of 7.319, sodium 127, potassium 5.6, chloride 87, carbon dioxide 20, anion gap 20, creatinine 1.43, EGFR 56, initial blood sugar 857, hemoglobin A1c 10.2, phosphorus 7.2, alkaline phosphate 203, beta hydroxybutyrate 4.25. UA showed 3+ urine glucose, 3+ urine ketone, otherwise normal. Respiratory panel was negative for influenza a and B, RSV, COVID. Patient was given 2 L of normal saline and started on an insulin infusion for DKA protocol. Geotechnicial Properties Technician consulted. Review of Systems Review of Systems: All systems reviewed & are unremarkable except as noted in HPI and below PMFSH Past Medical History Medical History Tobacco use Diabetes Surgical History Surgical History No history of previous surgery Social History Social History Smoking status: Current every day smoker Alcohol intake: current Substance use: former Substance use type: crack/cocaine Do You Feel Safe in your Home?: Yes Lack of Transportation: YES Lack of Food: Never True Current Housing: I Have Housing Concerned About Future Housing: No Difficulty Paying Gas/Electric Bills: No Difficulty Paying for Meds: No Currently Unemployed: No Education: Decline to Answer Difficulty w/ Childcare or Family Care: No Spiritual care concerns: No Meds Home Medications and Allergies Home Medications ?Medication ?Instructions ?Recorded ?Confirmed ?Type No Home Medications 10/30/24 10/30/24 History Allergies Allergy/AdvReac Type Severity Reaction Status Date / Time No Known Allergies Allergy Verified 10/30/24 11:34 Vital Signs Vital Signs - 24 hr 10/30/24 10:55 10/30/24 14:30 10/30/24 14:30 Temperature 97.7 F Pulse Rate 76 87 Respiratory Rate 17 18 Blood Pressure 146/97 H 141/78 H Pulse Oximetry 98 99 Oxygen Delivery Room Air Room Air 10/30/24 14:30 Temperature Pulse Rate 87 Respiratory Rate Blood Pressure Pulse Oximetry Oxygen Delivery Exam Narrative: General: In no acute distress, well nourished Head: atraumatic, no encephalopathy Eyes: PERRLA, sclera clear ENT: moist mucous membranes, nasal passages clear Neck: supple, no JVD, no adenopathy, trachea midline Cardiac: Normal S1 and S2. RRR, No murmur, gallops or friction rubs, peripheral pulses intact. Respiratory: Lungs clear to auscultation, no adventitious lung sounds, currently on room air Gastrointestinal: soft, non-distended, non-tender, normoactive bowel sounds. : voiding without difficulty. Extremities: moves all extremities well, no edema Skin: clean, dry, intact. No wounds or lesions. Neuro: Alert and oriented x4, cranial nerves intact, no neuro deficits. Psych: normal mood, normal affect, interactive H&P: Results Labs Labs: Short CBC 10/30/24 Range/Units 11:19 WBC 6.2 (4.5-10.0) K/mm3 Hgb 16.8 (14.0-18.0) g/dL Hct 45.0 (42.0-52.0) % Plt Count 276 (150-375) k/mm3 BMP 10/30/24 11:19 Sodium 127 L Potassium 5.6 H Chloride 87 L Carbon Dioxide 20 L BUN 27 H Creatinine 1.43 H Glucose 857 H* Calcium 9.8 Liver Function 10/30/24 Range/Units 11:19 Total Bilirubin 0.7 (0.2-1.3) mg/dL AST 18 (17-59) U/L ALT 30 (6-50) U/L Alkaline Phosphatase 203 H (38-126) U/L Albumin 4.8 (3.5-5.1) g/dL Urine 10/30/24 Range/Units 11:19 Urine Color Yellow (Yellow) Urine Appearance Clear (Clear) Urine pH 5.0 (5.0-9.0) Ur Specific [place] 1.030 (1.001-1.035) Urine Protein Negative (Negative) mg/dL Urine Glucose (UA) 3+ H (Negative) mg/dL Assessment and Plan Assessment and plan (1) DKA (diabetic ketoacidosis): Code(s): E11.10 - Type 2 diabetes mellitus with ketoacidosis without coma Status: Acute Assessment and Plan: Reporting polyuria, polydipsia for the last 3-4 days, initial BG 857, Beta hydroxybutyrate 4.25, Anion Gap 20, Bicarb 20, pH 7.319, urine shown 3+ glucose and 3+ ketones. * Start insulin infusion per DKA protocol * Monitor anion gap and transition to Lantus and SSI once gap is closed * Admit to ICU * Geotechnicial Properties Technician consulted * Continue NPO status * Patient given 2L NS while in the ER for hydration * coding educator consulted * odd jobs day worker consulted (2) Acute kidney injury: Code(s): N17.9 - Acute kidney failure, unspecified Status: Acute Assessment and Plan: Likely secondary to polyuria due to DKA * creatinine 1.43 * patient received 2 L normal saline while in the ED * continue DKA protocol * continue to trend labs (3) Electrolyte imbalance: Code(s): E87.8 - Other disorders of electrolyte and fluid balance, not elsewhere classifi ed Status: Acute Assessment and Plan: Likely secondary to polyuria fromDKA * potassium 5.6 * sodium 127 * patient was given 2L NS in ER * Continue DKA protocol * Continue to trend (4) Tobacco use: Code(s): Z72.0 - Tobacco use Status: Acute Assessment and Plan: * educated about smoking cessation Quality VTE Prophylaxis VTE prophylaxis: mechanical ordered Hospitalist [facility] Advance Care Plan I have confirmed that the patient's Advanced Care Plan is present, code status is documented, or surrogate decision maker is listed in patient medical record.: Yes Medication Reconciliation I have utilized all available resources to obtain, update and review the patients current medications (includes all prescriptions, OTC, herbals, cannabis, and nutritional supplements).: Yes
[2024-10-30 16:09] LABS: Glucose Point of Care 286 mg/dl (65-105)
[2024-10-30 16:21] LABS: Anion Gap 11 mmol/L (4-12); Blood Urea Nitrogen 21 mg/dL (9-20); Calcium 8.8 mg/dL (8.4-10.2); Carbon Dioxide 24 mmol/L (22-30); Chloride 104 mmol/L (98-107); Estimated CRCL calculation 66 ml/min; Estimated Glomerular Filt Rate > 60; Glucose 259 mg/dL (65-110); Potassium 4.7 mmol/L (3.4-5.0); Sodium 139 mmol/L (137-145)
[2024-10-30 16:27] LABS: MRSA (PCR) NOT DETECTED (NOT DETECTE)
[2024-10-30 17:16] LABS: Glucose Point of Care 159 mg/dl (65-105)
[2024-10-30] MEDS: KCL 20 MEQ/D5/0.45% SOD CHL 1,000 ML 150 ML IV CONT (17:19)
[2024-10-30 18:05] LABS: Glucose Point of Care 119 mg/dl (65-105)
[2024-10-30 19:01] LABS: Glucose Point of Care 119 mg/dl (65-105)
[2024-10-30 19:46] LABS: Anion Gap 10 mmol/L (4-12); Blood Urea Nitrogen 19 mg/dL (9-20); Calcium 8.9 mg/dL (8.4-10.2); Carbon Dioxide 26 mmol/L (22-30); Chloride 105 mmol/L (98-107); Estimated CRCL calculation 74 ml/min; Estimated Glomerular Filt Rate > 60; Glucose 130 mg/dL (65-110); Potassium 4.1 mmol/L (3.4-5.0); Sodium 141 mmol/L (137-145)
--- NOTE | 2024-10-30 20:03 | PC.NURSE ---
Updated Dr. Schwartz regarding current labs. New orders received.
[2024-10-30] MEDS: INSULIN GLARGINE (*BKC) 100 UNITS/ML 15 UNITS SUB-Q (20:14)
[2024-10-30 22:07] LABS: Glucose Point of Care 399 mg/dl (65-105)
[2024-10-30] MEDS: INSULIN ASPART (*BKC) 100 UNITS/ML SUB-Q (22:11)
[2024-10-30 23:17] LABS: Glucose Point of Care 368 mg/dl (65-105)
[2024-10-31] VITALS (11 sets, daily range): BP systolic 98–126; BP diastolic 45–73; PULSE 60–79; RESP 12–22; TEMP 36.7–37; O2SAT 96–100; BMI 24.4
[2024-10-31 04:40] LABS: Basophils Percent Auto 0.8 % (0.2-1.2); Eosinophils Absolute Auto 0.1 K/mm3 (0-0.3); Eosinophils Percent Auto 1.7 % (0-4.4); Hematocrit 40.3 % (42.0-52.0); Hemoglobin 14.6 g/dL (14.0-18.0); Immature Granulocyte Absolute 0.01 K/mm3 (0.00-0.031); Immature Granulocyte Percent A 0.2 % (0-0.5); Lymphocytes Percent Auto 48.8 % (18.3-44.2); Mean Corpuscular HGB Conc 36.2 g/dl (32-36); Mean Corpuscular Hemoglobin 30.2 pg (26-34); Mean Corpuscular Volume 83.3 fl (80-100); Mean Platelet Volume 9.8 fl (7.4-10.4); Monocytes Absolute Auto 0.3 K/mm3 (0.1-0.6); Monocytes Percent Auto 6.4 % (2.6-8.5); Neutrophils Absolute Auto 2.3 K/mm3 (1.3-6.7); Neutrophils Percent Auto 42.1 % (45.5-73.1); Platelet Count Result 225 k/mm3 (150-375); Red Blood Count 4.84 M/mm3 (4.6-6.20); Red Cell Distribution Width 11.4 % (11.5-14.5); White Blood Count 5.3 K/mm3 (4.5-10.0)
[2024-10-31 04:55] LABS: Alanine Aminotransferase 24 U/L (6-50); Albumin Level 3.7 g/dL (3.5-5.1); Alkaline Phosphatase 78 U/L (38-126); Anion Gap 7 mmol/L (4-12); Aspartate Amino Transferase 20 U/L (17-59); Bilirubin,Total 0.4 mg/dL (0.2-1.3); Blood Urea Nitrogen 18 mg/dL (9-20); Calcium 8.5 mg/dL (8.4-10.2); Carbon Dioxide 25 mmol/L (22-30); Chloride 105 mmol/L (98-107); Estimated CRCL calculation 73 ml/min; Estimated Glomerular Filt Rate > 60; Glucose 279 mg/dL (65-110); Magnesium 2.1 mg/dL (1.6-2.3); Phosphorus 2.9 mg/dL (2.5-4.5); Potassium 4.4 mmol/L (3.4-5.0); Sodium 137 mmol/L (137-145)
[2024-10-31] MEDS: LACTATED RINGERS 1,000 ML 999 ML IV CONT (08:03)
[2024-10-31] MEDS: INSULIN ASPART (*BKC) 100 UNITS/ML SUB-Q ×4 (08:04→20:36)
[2024-10-31] MEDS: INSULIN GLARGINE (*BKC) 100 UNITS/ML 25 UNITS SUB-Q (08:04)
[2024-10-31] MEDS: ENOXAPARIN 40 MG/0.4 ML SYRINGE SUB-Q (08:05)
[2024-10-31 08:11] LABS: Glucose Point of Care 269 mg/dl (65-105)
--- NOTE | 2024-10-31 09:11 | P.PNINT_ITS ---
Progress Note: A&P Assessment and Plan (1) DKA (diabetic ketoacidosis): Code(s): E11.10 - Type 2 diabetes mellitus with ketoacidosis without coma Status: Acute Assessment and Plan: 10/30: Presented the ED with complains of polyuria, polydipsia for the last 3-4 days prior to admission. Blood sugars were 857, positive beta hydroxybutyrate, anion gap of 20, acute kidney injury -patient was given 2 L IV fluid bolus in the ED, started on insulin infusion per DKA protocol -will give additional 1 L IV fluid bolus in the ICU -patient was transition to long-acting insulin and sliding scale insulin yesterday evening -currently on diabetic diet -10/31: Will increase to high-dose sliding scale and Lantus will also be increased as her blood sugars elevate -will give additional IV fluid bolus this morning -hemoglobin A1c is 10.2 this admission (2) Acute kidney injury: Code(s): N17.9 - Acute kidney failure, unspecified Status: Acute Assessment and Plan: Patient with acute kidney injury, creatinine of 1.43, BUN 27, likely related to dehydration, polyuria due to DKA -patient being fluid resuscitated -creatinine is resolved -continue to monitor urine output, renal function and electrolytes (3) Tobacco use: Code(s): Z72.0 - Tobacco use Status: Acute Assessment and Plan: Have counseled patient on cessation of tobacco use, he stated he is going to think about it (4) Electrolyte imbalance: Code(s): E87.8 - Other disorders of electrolyte and fluid balance, not elsewhere classified Status: Acute Assessment and Plan: Hyponatremia likely related to DKA -resolved Hyperkalemia likely related to acidosis secondary to DKA -resolved Continue to monitor with fluid resuscitation Plan DVT prophylaxis: Lovenox Stress ulcer prophylaxis: Not indicated Nutrition: Diabetic Code Status: Full code Critical Care Time Spent: 31 minutes Patient may be transferred out of the ICU Discussed with patient updated with his condition and plan of care. He is aware that he is going to be on an insulin drip, no diet for now except ice chips. Once his acidosis and gap closes we will start him on long-acting and short- acting insulin. I answered all his questions Due to a high probability of clinically significant, life threatening deterioration, the patient required my highest level of preparedness to i ntervene emergently and I personally spent this critical care time directly and personally managing the patient. This critical care time included obtaining a history; examining the patient; pulse oximetry; ordering and review of studies; arranging urgent treatment with development of a management plan; evaluation of patient's response to treatment; frequent reassessment; and discussions with other providers. It was exclusive of separately billable procedures and treating other patients and teaching time. Please see Assessment and Plan section and the rest of the note for further information on patient assessment and treatment This dictation may have been done utilizing a voice recognition system. Attempts have been made to correct errors. However, there may be uncorrected grammatical, spelling, and recognitions errors present. Subjective Date/time seen: 10/31/24 09:11 Interval history: Reason for consult: Diabetic ketoacidosis, polyuria, polydipsia, fatigue Patient seen and examined the ICU, pleasant gentleman in no acute distress, denies any shortness of breath, chest pain, abdominal pain, nausea, vomiting at this time. States he still thirsty. Patient is for insulin infusion after his anion gap closed last night and received Lantus. This morning blood sugars still elevated in the 200s to 300s, denies any neuropathy. Urine output has been low. Creatinine is down to normal Review of Systems Review of Systems: All systems reviewed & are unremarkable except as noted in HPI and below Exam Narrative: General: Pleasant, young gentleman in no acute distress HEENT:? Pupils equal and reactive, sclera is clear, moist oral mucosa Neck:? Supple Respiratory:? Clear to auscultation bilaterally, adequate air entry, no wheezing Cardiac:? S1-S2 normal, regular rate and rhythm Abdomen:? Soft, nontender, nondistended, normoactive bowel sound Extremities:? No edema, palpable pedal pulses Neuro:? Patient is awake, alert, oriented, able to answer questions appropriately and moves all extremities spontaneously Skin:? Multiple tattoos Psych:? Normal mentation and affect Objective Data Vital Signs Vital Signs: Vital Signs - 24 hr 10/30/24 10:55 10/30/24 14:30 10/30/24 14:30 Temperature 97.7 F Pulse Rate 76 87 Respiratory Rate 17 18 Blood Pressure 146/97 H 141/78 H Pulse Oximetry 98 99 Oxygen Delivery Room Air Room Air 10/30/24 14:30 10/30/24 16:00 10/30/24 16:00 Temperature Pulse Rate 87 72 Respiratory Rate Blood Pressure Pulse Oximetry Oxygen Delivery Room Air 10/30/24 16:00 10/30/24 18:00 10/30/24 18:00 Temperature 98.4 F Pulse Rate 74 72 67 Respiratory Rate 14 20 Blood Pressure 123/66 118/81 Pulse Oximetry 98 100 Oxygen Delivery 10/30/24 20:00 10/30/24 20:00 10/30/24 20:00 Temperature 98.5 F Pulse Rate 65 61 61 Respiratory Rate 18 18 Blood Pressure 119/63 Pulse Oximetry 100 99 Oxygen Delivery Room Air 10/30/24 22:00 10/30/24 22:00 10/30/24 23:23 Temperature Pulse Rate 70 70 70 Respiratory Rate 14 14 Blood Pressure 118/73 Pulse Oximetry 98 98 Oxygen Delivery Room Air 10/31/24 00:00 10/31/24 00:00 10/31/24 02:00 Temperature Pulse Rate 79 79 70 Respiratory Rate 17 Blood Pressure 110/52 L Pulse Oximetry 97 Oxygen Delivery 10/31/24 02:00 10/31/24 03:47 10/31/24 04:00 Temperature 98.6 F Pulse Rate 70 62 62 Respiratory Rate 16 18 17 Blood Pressure 114/51 L 109/45 L Pulse Oximetry 97 96 97 Oxygen Delivery Room Air 10/31/24 04:00 10/31/24 06:00 10/31/24 06:00 Temperature Pulse Rate 65 67 69 Respiratory Rate 18 Blood Pressure 98/53 L Pulse Oximetry 98 Oxygen Delivery Intake/Output Intake/Output: Intake & Output 10/28/24 10/29/24 10/30/24 10/31/24 23:59 23:59 23:59 23:59 Intake Total 4167.1 1300 Output Total 200 300 Balance 3967.1 1000 Meds/Results Medications: Active Medications Generic Name Dose Route Start Last Admin Trade Name Freq PRN Reason Stop Dose Admin Dextrose 12.5 gm 10/30/24 14:06 Dextrose 50% 25 Gm/50 Ml Syringe IV PUSH PRN PRN Hypoglycemia Protocol Enoxaparin Sodium 40 mg 10/30/24 14:40 10/31/24 08:05 Enoxaparin 40 Mg/0.4 Ml Syringe SUB-Q 40 mg DAILY CRYSTAL Administration Glucagon 1 mg 10/30/24 14:06 Glucagon For Inj 1 Mg Vial IM PRN PRN Hypoglycemia Protocol Glucose 15 gm 10/30/24 14:06 Glucose Oral Gel 15 Gm Of Glucse In 37.5 Gm Tube PO PRN PRN Hypoglycemia Protocol Dextrose 1,000 mls @ 100 mls/hr 10/30/24 14:06 Dextrose 5% 1,000 Ml IVPB PRN PRN Hypoglycemia Protocol Insulin Aspart 2 - 4 units 10/31/24 21:00 Insulin Aspart (*Bkc) 100 Units/Ml SUB-Q HS CRYSTAL Protocol Insulin Aspart 4 - 8 units 10/31/24 08:00 10/31/24 08:04 Insulin Aspart (*Bkc) 100 Units/Ml SUB-Q 5 units TIDWM CRYSTAL Administration Protocol Insulin Glargine 25 units 10/31/24 09:00 10/31/24 08:04 Insulin Glargine (*Bkc) 100 Units/Ml SUB-Q 25 units DAILY CRYSTAL Administration Ondansetron HCl 4 mg 10/30/24 13:27 Ondansetron Inj 4 Mg/2 Ml Vial IV PUSH Q4H PRN Nausea Labs Labs: Laboratory Results - last 24 hr 10/30/24 10/30/24 10/30/24 10:56 11:19 11:24 WBC 6.2 RBC 5.38 Hgb 16.8 Hct 45.0 MCV 83.6 MCH 31.2 MCHC 37.3 H RDW 11.2 L Plt Count 276 MPV 10.4 Immature Gran % (Auto) 0.2 Neut % (Auto) 61.5 Lymph % (Auto) 31.6 [place] % (Auto) 5.2 Eos % (Auto) 1.0 Baso % (Auto) 0.5 Lymph # (Auto) 1.95 [place] # (Auto) 0.3 Eos # (Auto) 0.1 Baso # (Auto) 0.0 Abs Immat Gran (auto) 0.01 Absolute Neuts (auto) 3.8 Absolute Nucleated RBC 0.000 Nucleated RBC % 0.0 Puncture Site Right radial ABG pH 7.319 L ABG pCO2 38.7 ABG pO2 85.4 ABG PO2/FiO2 Ratio 4.07 ABG HCO3 19.4 L ABG O2 Saturation 95.8 ABG O2 Content 21.5 ABG Base Excess -6.1 A-a Gradient 18.0 Oxyhemoglobin 92.2 Carboxyhemoglobin 2.5 H Methemoglobin 0.4 Reduced Hemoglobin 4.9 Total Hemoglobin 16.6 O2 Delivery Device Room air O2 Liters/Min Not Reportable FiO2 21 Sodium 127 L Potassium 5.6 H Chloride 87 L Carbon Dioxide 20 L Anion Gap 20 H BUN 27 H Creatinine 1.43 H Estim Creat Clear Calc 59 Estimated GFR 56 L Glucose 857 H* POC Capillary Glucose > 500 H* Hemoglobin A1c 10.2 H Calcium 9.8 Phosphorus 7.2 H Magnesium 2.1 Total Bilirubin 0.7 AST 18 ALT 30 Alkaline Phosphatase 203 H Total Protein 7.0 Albumin 4.8 Beta-Hydroxybutyrate/Acetoacetate 4.25 H Urine Color Yellow Urine Appearance Clear Urine pH 5.0 Ur Specific [place] 1.030 Urine Protein Negative Urine Glucose (UA) 3+ H Urine Ketones 3+ H Ur Blood (Man) Negative Urine Nitrate Negative Urine Bilirubin Negative Urine Urobilinogen 0.2 Leukocyte Esterase Rfl Negative Nasal MRSA (PCR) Influenza A (RT-PCR) Influenza B (RT-PCR) RSV (RT-PCR) SARS-CoV-2 RNA (RT-PCR) 10/30/24 10/30/24 10/30/24 12:54 13:59 15:07 WBC RBC Hgb Hct MCV MCH MCHC RDW Plt Count MPV Immature Gran % (Auto) Neut % (Auto) Lymph % (Auto) [place] % (Auto) Eos % (Auto) Baso % (Auto) Lymph # (Auto) [place] # (Auto) Eos # (Auto) Baso # (Auto) Abs Immat Gran (auto) Absolute Neuts (auto) Absolute Nucleated RBC Nucleated RBC % Puncture Site ABG pH ABG pCO2 ABG pO2 ABG PO2/FiO2 Ratio ABG HCO3 ABG O2 Saturation ABG O2 Content ABG Base Excess A-a Gradient Oxyhemoglobin Carboxyhemoglobin Methemoglobin Reduced Hemoglobin Total Hemoglobin O2 Delivery Device O2 Liters/Min FiO2 Sodium Potassium Chloride Carbon Dioxide Anion Gap BUN Creatinine Estim Creat Clear Calc Estimated GFR Glucose POC Capillary Glucose > 500 H* 472 H 413 H Hemoglobin A1c Calcium Phosphorus Magnesium Total Bilirubin AST ALT Alkaline Phosphatase Total Protein Albumin Beta-Hydroxybutyrate/Acetoacetate Urine Color Urine Appearance Urine pH Ur Specific [place] Urine Protein Urine Glucose (UA) Urine Ketones Ur Blood (Man) Urine Nitrate Urine Bilirubin Urine Urobilinogen Leukocyte Esterase Rfl Nasal MRSA (PCR) Influenza A (RT-PCR) Influenza B (RT-PCR) RSV (RT-PCR) SARS-CoV-2 RNA (RT-PCR) 10/30/24 10/30/24 10/30/24 15:10 16:03 16:04 WBC RBC Hgb Hct MCV MCH MCHC RDW Plt Count MPV Immature Gran % (Auto) Neut % (Auto) Lymph % (Auto) [place] % (Auto) Eos % (Auto) Baso % (Auto) Lymph # (Auto) [place] # (Auto) Eos # (Auto) Baso # (Auto) Abs Immat Gran (auto) Absolute Neuts (auto) Absolute Nucleated RBC Nucleated RBC % Puncture Site ABG pH ABG pCO2 ABG pO2 ABG PO2/FiO2 Ratio ABG HCO3 ABG O2 Saturation ABG O2 Content ABG Base Excess A-a Gradient Oxyhemoglobin Carboxyhemoglobin Methemoglobin Reduced Hemoglobin Total Hemoglobin O2 Delivery Device O2 Liters/Min FiO2 Sodium 139 Potassium 4.7 Chloride 104 Carbon Dioxide 24 Anion Gap 11 BUN 21 H Creatinine 1.29 Estim Creat Clear Calc 66 Estimated GFR > 60 Glucose 259 H POC Capillary Glucose 286 H Hemoglobin A1c Calcium 8.8 Phosphorus Magnesium Total Bilirubin AST ALT Alkaline Phosphatase Total Protein Albumin Beta-Hydroxybutyrate/Acetoacetate Urine Color Urine Appearance Urine pH Ur Specific [place] Urine Protein Urine Glucose (UA) Urine Ketones Ur Blood (Man) Urine Nitrate Urine Bilirubin Urine Urobilinogen Leukocyte Esterase Rfl Nasal MRSA (PCR) Not detected Influenza A (RT-PCR) Negative Influenza B (RT-PCR) Negative RSV (RT-PCR) Negative SARS-CoV-2 RNA (RT-PCR) Negative 10/30/24 10/30/24 10/30/24 17:12 18:02 18:59 WBC RBC Hgb Hct MCV MCH MCHC RDW Plt Count MPV Immature Gran % (Auto) Neut % (Auto) Lymph % (Auto) [place] % (Auto) Eos % (Auto) Baso % (Auto) Lymph # (Auto) [place] # (Auto) Eos # (Auto) Baso # (Auto) Abs Immat Gran (auto) Absolute Neuts (auto) Absolute Nucleated RBC Nucleated RBC % Puncture Site ABG pH ABG pCO2 ABG pO2 ABG PO2/FiO2 Ratio ABG HCO3 ABG O2 Saturation ABG O2 Content ABG Base Excess A-a Gradient Oxyhemoglobin Carboxyhemoglobin Methemoglobin Reduced Hemoglobin Total Hemoglobin O2 Delivery Device O2 Liters/Min FiO2 Sodium Potassium Chloride Carbon Dioxide Anion Gap BUN Creatinine Estim Creat Clear Calc Estimated GFR Glucose POC Capillary Glucose 159 H 119 H 119 H Hemoglobin A1c Calcium Phosphorus Magnesium Total Bilirubin AST ALT Alkaline Phosphatase Total Protein Albumin Beta-Hydroxybutyrate/Acetoacetate Urine Color Urine Appearance Urine pH Ur Specific [place] Urine Protein Urine Glucose (UA) Urine Ketones Ur Blood (Man) Urine Nitrate Urine Bilirubin Urine Urobilinogen Leukocyte Esterase Rfl Nasal MRSA (PCR) Influenza A (RT-PCR) Influenza B (RT-PCR) RSV (RT-PCR) SARS-CoV-2 RNA (RT-PCR) 10/30/24 10/30/24 10/30/24 19:29 22:03 23:13 WBC RBC Hgb Hct MCV MCH MCHC RDW Plt Count MPV Immature Gran % (Auto) Neut % (Auto) Lymph % (Auto) [place] % (Auto) Eos % (Auto) Baso % (Auto) Lymph # (Auto) [place] # (Auto) Eos # (Auto) Baso # (Auto) Abs Immat Gran (auto) Absolute Neuts (auto) Absolute Nucleated RBC Nucleated RBC % Puncture Site ABG pH ABG pCO2 ABG pO2 ABG PO2/FiO2 Ratio ABG HCO3 ABG O2 Saturation ABG O2 Content ABG Base Excess A-a Gradient Oxyhemoglobin Carboxyhemoglobin Methemoglobin Reduced Hemoglobin Total Hemoglobin O2 Delivery Device O2 Liters/Min FiO2 Sodium 141 Potassium 4.1 Chloride 105 Carbon Dioxide 26 Anion Gap 10 BUN 19 Creatinine 1.13 Estim Creat Clear Calc 74 Estimated GFR > 60 Glucose 130 H POC Capillary Glucose 399 H 368 H Hemoglobin A1c Calcium 8.9 Phosphorus Magnesium Total Bilirubin AST ALT Alkaline Phosphatase Total Protein Albumin Beta-Hydroxybutyrate/Acetoacetate Urine Color Urine Appearance Urine pH Ur Specific [place] Urine Protein Urine Glucose (UA) Urine Ketones Ur Blood (Man) Urine Nitrate Urine Bilirubin Urine Urobilinogen Leukocyte Esterase Rfl Nasal MRSA (PCR) Influenza A (RT-PCR) Influenza B (RT-PCR) RSV (RT-PCR) SARS-CoV-2 RNA (RT-PCR) 10/31/24 10/31/24 04:27 08:02 WBC 5.3 RBC 4.84 Hgb 14.6 Hct 40.3 L MCV 83.3 MCH 30.2 MCHC 36.2 H RDW 11.4 L Plt Count 225 MPV 9.8 Immature Gran % (Auto) 0.2 Neut % (Auto) 42.1 L Lymph % (Auto) 48.8 H [place] % (Auto) 6.4 Eos % (Auto) 1.7 Baso % (Auto) 0.8 Lymph # (Auto) 2.60 [place] # (Auto) 0.3 Eos # (Auto) 0.1 Baso # (Auto) 0.0 Abs Immat Gran (auto) 0.01 Absolute Neuts (auto) 2.3 Absolute Nucleated RBC 0.000 Nucleated RBC % 0.0 Puncture Site ABG pH ABG pCO2 ABG pO2 ABG PO2/FiO2 Ratio ABG HCO3 ABG O2 Saturation ABG O2 Content ABG Base Excess A-a Gradient Oxyhemoglobin Carboxyhemoglobin Methemoglobin Reduced Hemoglobin Total Hemoglobin O2 Delivery Device O2 Liters/Min FiO2 Sodium 137 Potassium 4.4 Chloride 105 Carbon Dioxide 25 Anion Gap 7 BUN 18 Creatinine 1.16 Estim Creat Clear Calc 73 Estimated GFR > 60 Glucose 279 H POC Capillary Glucose 269 H Hemoglobin A1c Calcium 8.5 Phosphorus 2.9 Magnesium 2.1 Total Bilirubin 0.4 AST 20 ALT 24 Alkaline Phosphatase 78 Total Protein 6.0 L Albumin 3.7 Beta-Hydroxybutyrate/Acetoacetate Urine Color Urine Appearance Urine pH Ur Specific [place] Urine Protein Urine Glucose (UA) Urine Ketones Ur Blood (Man) Urine Nitrate Urine Bilirubin Urine Urobilinogen Leukocyte Esterase Rfl Nasal MRSA (PCR) Influenza A (RT-PCR) Influenza B (RT-PCR) RSV (RT-PCR) SARS-CoV-2 RNA (RT-PCR) Quality VTE Prophylaxis VTE prophylaxis: mechanical ordered
[2024-10-31 11:49] LABS: Glucose Point of Care 385 mg/dl (65-105)
[2024-10-31 16:43] LABS: Glucose Point of Care 359 mg/dl (65-105)
[2024-10-31 20:09] LABS: Glucose Point of Care 293 mg/dl (65-105)
[2024-10-31] MEDS: NICOTINE (*PBKC) 21 MG PATCH 1 PATCH TRANSDERM (20:52)
--- NOTE | 2024-10-31 21:26 | PC.NURSE ---
pt transfered to 253 report given to JAMES Mina
[2024-11-01] VITALS: BP 128/82; PULSE 69; RESP 18; TEMP 36.9; O2SAT 100
[2024-11-01 05:19] VITALS: BP 133/85; PULSE 61; RESP 20; TEMP 36.9; O2SAT 100
[2024-11-01 05:22] LABS: Basophils Percent Auto 0.4 % (0.2-1.2); Eosinophils Absolute Auto 0.1 K/mm3 (0-0.3); Eosinophils Percent Auto 1.3 % (0-4.4); Hematocrit 42.5 % (42.0-52.0); Hemoglobin 15.1 g/dL (14.0-18.0); Lymphocytes Percent Auto 44.5 % (18.3-44.2); Mean Corpuscular HGB Conc 35.5 g/dl (32-36); Mean Corpuscular Hemoglobin 30.1 pg (26-34); Mean Corpuscular Volume 84.8 fl (80-100); Mean Platelet Volume 10.1 fl (7.4-10.4); Monocytes Absolute Auto 0.3 K/mm3 (0.1-0.6); Monocytes Percent Auto 5.6 % (2.6-8.5); Neutrophils Absolute Auto 2.6 K/mm3 (1.3-6.7); Neutrophils Percent Auto 48.2 % (45.5-73.1); Platelet Count Result 203 k/mm3 (150-375); Red Blood Count 5.01 M/mm3 (4.6-6.20); Red Cell Distribution Width 11.3 % (11.5-14.5); White Blood Count 5.4 K/mm3 (4.5-10.0)
[2024-11-01 05:48] LABS: Alanine Aminotransferase 28 U/L (6-50); Albumin Level 4.1 g/dL (3.5-5.1); Alkaline Phosphatase 84 U/L (38-126); Anion Gap 13 mmol/L (4-12); Aspartate Amino Transferase 21 U/L (17-59); Bilirubin,Total 0.7 mg/dL (0.2-1.3); Blood Urea Nitrogen 15 mg/dL (9-20); Carbon Dioxide 22 mmol/L (22-30); Chloride 100 mmol/L (98-107); Estimated CRCL calculation 79 ml/min; Estimated Glomerular Filt Rate > 60; Glucose 320 mg/dL (65-110); Magnesium 2.1 mg/dL (1.6-2.3); Phosphorus 3.3 mg/dL (2.5-4.5); Potassium 3.7 mmol/L (3.4-5.0); Sodium 135 mmol/L (137-145)
[2024-11-01 08:11] LABS: Glucose Point of Care 313 mg/dl (65-105)
--- NOTE | 2024-11-01 08:17 | P.PNIM_ITS ---
Progress Note: A&P Assessment and Plan (1) DKA (diabetic ketoacidosis): Code(s): E11.10 - Type 2 diabetes mellitus with ketoacidosis without coma Status: Acute (2) Hyponatremia: Code(s): E87.1 - Hypo-osmolality and hyponatremia Status: Acute (3) Acute kidney injury: Code(s): N17.9 - Acute kidney failure, unspecified Status: Acute (4) Electrolyte imbalance: Code(s): E87.8 - Other disorders of electrolyte and fluid balance, not elsewhere classified Status: Acute (5) Tobacco use: Code(s): Z72.0 - Tobacco use Status: Acute Plan (1) DKA (diabetic ketoacidosis): Code(s): E11.10 - Type 2 diabetes mellitus with ketoacidosis without coma Status: Acute Assessment and Plan: 10/30: Presented the ED with complains of polyuria, polydipsia for the last 3-4 days prior to admission. Blood sugars were 857, positive beta hydroxybutyrate, anion gap of 20, acute kidney injury -patient was given 2 L IV fluid bolus in the ED, started on insulin infusion per DKA protocol -will give additional 1 L IV fluid bolus in the ICU -patient was transition to long-acting insulin and sliding scale insulin yesterday evening -currently on diabetic diet -10/31: Will increase to high-dose sliding scale and Lantus will also be increased as her blood sugars elevate -will give additional IV fluid bolus this morning -hemoglobin A1c is 10.2 this admission Glucose is not well controlled, increase Lantus 25 units b.i.d. and aspart 7 units t.i.d. with meal, continue high-dose insulin sliding scale 11/01. (2) Acute kidney injury: Code(s): N17.9 - Acute kidney failure, unspecified Status: Acute Assessment and Plan: Patient with acute kidney injury, creatinine of 1.43, BUN 27, likely related to dehydration, polyuria due to DKA -patient being fluid resuscitated -creatinine is resolved -continue to monitor urine output, renal function and electrolytes Resolved (3) Tobacco use: Code(s): Z72.0 - Tobacco use Status: Acute Assessment and Plan: Have counseled patient on cessation of tobacco use, he stated he is going to think about it (4) Electrolyte imbalance: Code(s): E87.8 - Other disorders of electrolyte and fluid balance, not elsewhere classified Status: Acute Assessment and Plan: Hyponatremia likely related to DKA -resolved Hyperkalemia likely related to acidosis secondary to DKA -resolved Continue to monitor with fluid resuscitation Subjective Date/time seen: 11/01/24 08:17 Interval history: I saw exam patient today, patient feels better, denies abdomen pain nausea vomiting diarrhea. Afebrile, labs reviewed, glucose is not well controlled Exam Narrative: GENERAL: Pleasant, in no acute distress. Well-nourished. - EYES: EOMI. Anicteric. - HENT: Moist mucous membranes. - LUNGS: Clear to auscultation bilateral ly, no wheezing, rhonchi, or rales. - CARDIOVASCULAR: Regular rate and rhyth m. No murmur. No JVD. - ABDOMEN: Soft, non-tender and non-dist ended. No palpable masses. - EXTREMITIES: No edema. Peripheral puls es 2+. Non-tender. - NEUROLOGIC: No focal neurological defi cits. CN II-XII grossly intact. - PSYCHIATRIC: Awake, Alert and oriented x 3. Appropriate mood and affect. - SKIN: No rashes or lesions. Warm. - LYMPH: No cervical lymphadenopathy. Objective Data Vital Signs Vital Signs: Vital Signs - 24 hr 10/31/24 10:00 10/31/24 10:00 10/31/24 16:00 Temperature 98.4 F Pulse Rate 66 66 60 Respiratory Rate 12 18 Blood Pressure 126/73 125/63 Pulse Oximetry 100 98 Oxygen Delivery Fraction of Inspired Oxygen 10/31/24 19:29 10/31/24 19:54 10/31/24 20:00 Temperature 98.1 F Pulse Rate 74 66 Respiratory Rate 14 22 H Blood Pressure 119/71 Pulse Oximetry 99 97 98 Oxygen Delivery Room Air Room Air Fraction of Inspired Oxygen 21 11/01/24 00:00 11/01/24 05:19 Temperature 98.4 F 98.4 F Pulse Rate 69 61 Respiratory Rate 18 20 Blood Pressure 128/82 133/85 Pulse Oximetry 100 100 Oxygen Delivery Fraction of Inspired Oxygen Intake/Output Intake/Output: Intake & Output 10/29/24 10/30/24 10/31/24 11/01/24 23:59 23:59 23:59 23:59 Intake Total 4167.1 3180 390 Output Total 200 2100 Balance 3967.1 1080 390 Meds/Results Medications: Active Medications Generic Name Dose Route Start Last Admin Trade Name Freq PRN Reason Stop Dose Admin Dextrose 12.5 gm 10/30/24 14:06 Dextrose 50% 25 Gm/50 Ml Syringe IV PUSH PRN PRN Hypoglycemia Protocol Enoxaparin Sodium 40 mg 10/30/24 14:40 10/31/24 08:05 Enoxaparin 40 Mg/0.4 Ml Syringe SUB-Q 40 mg DAILY CRYSTAL Administration Glucagon 1 mg 10/30/24 14:06 Glucagon For Inj 1 Mg Vial IM PRN PRN Hypoglycemia Protocol Glucose 15 gm 10/30/24 14:06 Glucose Oral Gel 15 Gm Of Glucse In 37.5 Gm Tube PO PRN PRN Hypoglycemia Protocol Dextrose 1,000 mls @ 100 mls/hr 10/30/24 14:06 Dextrose 5% 1,000 Ml IVPB PRN PRN Hypoglycemia Protocol Insulin Aspart 2 - 4 units 10/31/24 21:00 10/31/24 20:36 Insulin Aspart (*Bkc) 100 Units/Ml SUB-Q 2 units HS CRYSTAL Administration Protocol Insulin Aspart 4 - 8 units 10/31/24 08:00 10/31/24 16:44 Insulin Aspart (*Bkc) 100 Units/Ml SUB-Q 8 units TIDWM CRYSTAL Administration Protocol Insulin Glargine 25 units 10/31/24 09:00 10/31/24 08:04 Insulin Glargine (*Bkc) 100 Units/Ml SUB-Q 25 units DAILY CRYSTAL Administration Nicotine 1 patch 11/01/24 09:00 10/31/24 20:52 Nicotine (*Pbkc) 21 Mg Patch TRANSDERM 1 patch DAILY CRYSTAL Administration Ondansetron HCl 4 mg 10/30/24 13:27 Ondansetron Inj 4 Mg/2 Ml Vial IV PUSH Q4H PRN Nausea Labs Labs: Laboratory Results - last 24 hr 10/31/24 10/31/24 10/31/24 11:38 16:41 20:05 WBC RBC Hgb Hct MCV MCH MCHC RDW Plt Count MPV Immature Gran % (Auto) Neut % (Auto) Lymph % (Auto) [place] % (Auto) Eos % (Auto) Baso % (Auto) Lymph # (Auto) [place] # (Auto) Eos # (Auto) Baso # (Auto) Abs Immat Gran (auto) Absolute Neuts (auto) Absolute Nucleated RBC Nucleated RBC % Sodium Potassium Chloride Carbon Dioxide Anion Gap BUN Creatinine Estim Creat Clear Calc Estimated GFR Glucose POC Capillary Glucose 385 H 359 H 293 H Calcium Phosphorus Magnesium Total Bilirubin AST ALT Alkaline Phosphatase Total Protein Albumin 11/01/24 11/01/24 05:02 08:07 WBC 5.4 RBC 5.01 Hgb 15.1 Hct 42.5 MCV 84.8 MCH 30.1 MCHC 35.5 RDW 11.3 L Plt Count 203 MPV 10.1 Immature Gran % (Auto) 0.0 Neut % (Auto) 48.2 Lymph % (Auto) 44.5 H [place] % (Auto) 5.6 Eos % (Auto) 1.3 Baso % (Auto) 0.4 Lymph # (Auto) 2.40 [place] # (Auto) 0.3 Eos # (Auto) 0.1 Baso # (Auto) 0.0 Abs Immat Gran (auto) 0.00 Absolute Neuts (auto) 2.6 Absolute Nucleated RBC 0.000 Nucleated RBC % 0.0 Sodium 135 L Potassium 3.7 Chloride 100 Carbon Dioxide 22 Anion Gap 13 H BUN 15 Creatinine 1.06 Estim Creat Clear Calc 79 Estimated GFR > 60 Glucose 320 H POC Capillary Glucose 313 H Calcium 9.0 Phosphorus 3.3 Magnesium 2.1 Total Bilirubin 0.7 AST 21 ALT 28 Alkaline Phosphatase 84 Total Protein 7.0 Albumin 4.1
[2024-11-01] MEDS: ENOXAPARIN 40 MG/0.4 ML SYRINGE SUB-Q (09:08)
[2024-11-01] MEDS: INSULIN GLARGINE (*BKC) 100 UNITS/ML 25 UNITS SUB-Q ×2 (09:08→21:01)
[2024-11-01] MEDS: INSULIN ASPART (*BKC) 100 UNITS/ML 7 UNITS SUB-Q ×3 (09:09→17:00)
[2024-11-01] MEDS: INSULIN ASPART (*BKC) 100 UNITS/ML SUB-Q ×2 (09:09→12:11)
[2024-11-01 11:37] LABS: Glucose Point of Care 343 mg/dl (65-105)
[2024-11-01 13:59] VITALS: BP 128/75; PULSE 62; RESP 20; TEMP 36.8; O2SAT 100
[2024-11-01 16:20] VITALS: BMI 27.8
[2024-11-01 16:25] LABS: Glucose Point of Care 188 mg/dl (65-105)
[2024-11-01 20:54] VITALS: BP 134/48; PULSE 71; RESP 18; TEMP 36.6; O2SAT 100
[2024-11-01] MEDS: NEOMYCIN/POLYMYXIN/BACITRACIN OINTMENT 15 GM TUBE 1 APPLIC TOPICAL (21:01)
[2024-11-01] MEDS: NICOTINE (*PBKC) 21 MG PATCH 1 PATCH TRANSDERM (21:01)
[2024-11-01 23:26] LABS: Glucose Point of Care 134 mg/dl (65-105)
[2024-11-02 05:41] VITALS: BP 130/65; PULSE 65; RESP 18; TEMP 36.4; O2SAT 99
[2024-11-02 05:46] LABS: Basophils Percent Auto 0.4 % (0.2-1.2); Eosinophils Absolute Auto 0.1 K/mm3 (0-0.3); Eosinophils Percent Auto 1.7 % (0-4.4); Hematocrit 38.9 % (42.0-52.0); Hemoglobin 13.8 g/dL (14.0-18.0); Immature Granulocyte Absolute 0.01 K/mm3 (0.00-0.031); Immature Granulocyte Percent A 0.2 % (0-0.5); Lymphocytes Absolute Auto 2.25 K/mm3 (0.9-3.2); Lymphocytes Percent Auto 48.4 % (18.3-44.2); Mean Corpuscular HGB Conc 35.5 g/dl (32-36); Mean Corpuscular Hemoglobin 30.1 pg (26-34); Mean Corpuscular Volume 84.7 fl (80-100); Mean Platelet Volume 10.1 fl (7.4-10.4); Monocytes Absolute Auto 0.3 K/mm3 (0.1-0.6); Monocytes Percent Auto 7.1 % (2.6-8.5); Neutrophils Percent Auto 42.2 % (45.5-73.1); Platelet Count Result 204 k/mm3 (150-375); Red Blood Count 4.59 M/mm3 (4.6-6.20); Red Cell Distribution Width 11.4 % (11.5-14.5); White Blood Count 4.7 K/mm3 (4.5-10.0)
[2024-11-02 05:50] LABS: Alanine Aminotransferase 22 U/L (6-50); Albumin Level 3.6 g/dL (3.5-5.1); Alkaline Phosphatase 65 U/L (38-126); Anion Gap 9 mmol/L (4-12); Aspartate Amino Transferase 18 U/L (17-59); Bilirubin,Total 0.6 mg/dL (0.2-1.3); Blood Urea Nitrogen 15 mg/dL (9-20); Calcium 8.9 mg/dL (8.4-10.2); Carbon Dioxide 25 mmol/L (22-30); Chloride 101 mmol/L (98-107); Estimated CRCL calculation 76 ml/min; Estimated Glomerular Filt Rate > 60; Glucose 251 mg/dL (65-110); Potassium 4.2 mmol/L (3.4-5.0); Sodium 135 mmol/L (137-145)
[2024-11-02 07:43] LABS: Glucose Point of Care 293 mg/dl (65-105)
[2024-11-02] MEDS: ENOXAPARIN 40 MG/0.4 ML SYRINGE SUB-Q (08:11)
[2024-11-02] MEDS: INSULIN GLARGINE (*BKC) 100 UNITS/ML 25 UNITS SUB-Q (08:13)
[2024-11-02] MEDS: INSULIN ASPART (*BKC) 100 UNITS/ML 7 UNITS SUB-Q (08:14)
[2024-11-02] MEDS: INSULIN ASPART (*BKC) 100 UNITS/ML SUB-Q (08:14)
--- NOTE | 2024-11-02 08:24 | P.PNIM_ITS ---
Progress Note: A&P Assessment and Plan (1) DKA (diabetic ketoacidosis): Code(s): E11.10 - Type 2 diabetes mellitus with ketoacidosis without coma Status: Acute (2) Hyponatremia: Code(s): E87.1 - Hypo-osmolality and hyponatremia Status: Acute (3) Acute kidney injury: Code(s): N17.9 - Acute kidney failure, unspecified Status: Acute (4) Electrolyte imbalance: Code(s): E87.8 - Other disorders of electrolyte and fluid balance, not elsewhere classified Status: Acute (5) Tobacco use: Code(s): Z72.0 - Tobacco use Status: Acute Plan (1) DKA (diabetic ketoacidosis): Code(s): E11.10 - Type 2 diabetes mellitus with ketoacidosis without coma Status: Acute Assessment and Plan: 10/30: Presented the ED with complains of polyuria, polydipsia for the last 3-4 days prior to admission. Blood sugars were 857, positive beta hydroxybutyrate, anion gap of 20, acute kidney injury -patient was given 2 L IV fluid bolus in the ED, started on insulin infusion per DKA protocol -will give additional 1 L IV fluid bolus in the ICU -patient was transition to long-acting insulin and sliding scale insulin yesterday evening -currently on diabetic diet -10/31: Will increase to high-dose sliding scale and Lantus will also be increased as her blood sugars elevate -will give additional IV fluid bolus this morning -hemoglobin A1c is 10.2 this admission Glucose is not well controlled, increase Lantus 25 units b.i.d. and aspart 7 units t.i.d. with meal, continue high-dose insulin sliding scale 11/01. Glucose is controlled intact range, continue current treatment (2) Acute kidney injury: Code(s): N17.9 - Acute kidney failure, unspecified Status: Acute Assessment and Plan: Patient with acute kidney injury, creatinine of 1.43, BUN 27, likely related to dehydration, polyuria due to DKA -patient being fluid resuscitated -creatinine is resolved -continue to monitor urine output, renal function and electrolytes Resolved (3) Tobacco use: Code(s): Z72.0 - Tobacco use Status: Acute Assessment and Plan: Have counseled patient on cessation of tobacco use, he stated he is going to think about it (4) Electrolyte imbalance: Code(s): E87.8 - Other disorders of electrolyte and fluid balance, not elsewhere classified Status: Acute Assessment and Plan: Hyponatremia likely related to DKA -resolved Hyperkalemia likely related to acidosis secondary to DKA -resolved Continue to monitor with fluid resuscitation Corrected Subjective Date/time seen: 11/02/24 08:24 Interval history: Glucose controlled in the target range, patient afebrile blood pressure stable, no new issue even over the night Exam Narrative: GENERAL: Pleasant, in no acute distress. Well-nourished. - EYES: EOMI. Anicteric. - HENT: Moist mucous membranes. - LUNGS: Clear to auscultation bilateral ly, no wheezing, rhonchi, or rales. - CARDIOVASCULAR: Regular rate and rhyth m. No murmur. No JVD. - ABDOMEN: Soft, non-tender and non-dist ended. No palpable masses. - EXTREMITIES: No edema. Peripheral puls es 2+. Non-tender. - NEUROLOGIC: No focal neurological defi cits. CN II-XII grossly intact. - PSYCHIATRIC: Awake, Alert and oriented x 3. Appropriate mood and affect. - SKIN: No rashes or lesions. Warm. - LYMPH: No cervical lymphadenopathy. Objective Data Vital Signs Vital Signs: Vital Signs - 24 hr 11/01/24 13:59 11/01/24 20:54 11/02/24 05:41 Temperature 98.2 F 97.8 F 97.6 F Pulse Rate 62 71 65 Respiratory Rate 20 18 18 Blood Pressure 128/75 134/48 L 130/65 Pulse Oximetry 100 100 99 Intake/Output Intake/Output: Intake & Output 10/30/24 10/31/24 11/01/24 11/02/24 23:59 23:59 23:59 23:59 Intake Total 4167.1 3180 2181 600 Output Total 200 2100 Balance 3967.1 1080 2181 600 Meds/Results Medications: Active Medications Generic Name Dose Route Start Last Admin Trade Name Freq PRN Reason Stop Dose Admin Dextrose 12.5 gm 10/30/24 14:06 Dextrose 50% 25 Gm/50 Ml Syringe IV PUSH PRN PRN Hypoglycemia Protocol Enoxaparin Sodium 40 mg 10/30/24 14:40 11/02/24 08:11 Enoxaparin 40 Mg/0.4 Ml Syringe SUB-Q 40 mg DAILY CRYSTAL Administration Glucagon 1 mg 10/30/24 14:06 Glucagon For Inj 1 Mg Vial IM PRN PRN Hypoglycemia Protocol Glucose 15 gm 10/30/24 14:06 Glucose Oral Gel 15 Gm Of Glucse In 37.5 Gm Tube PO PRN PRN Hypoglycemia Protocol Dextrose 1,000 mls @ 100 mls/hr 10/30/24 14:06 Dextrose 5% 1,000 Ml IVPB PRN PRN Hypoglycemia Protocol Insulin Aspart 2 - 4 units 10/31/24 21:00 11/01/24 21:01 Insulin Aspart (*Bkc) 100 Units/Ml SUB-Q Not Given HS [facility] Protocol Insulin Aspart 4 - 8 units 10/31/24 08:00 11/02/24 08:14 Insulin Aspart (*Bkc) 100 Units/Ml SUB-Q 5 units TIDWM CRYSTAL Administration Protocol Insulin Aspart 7 units 11/01/24 08:00 11/02/24 08:14 Insulin Aspart (*Bkc) 100 Units/Ml 0.083 units/kg (7 units) 7 units SUB-Q Administration TIDWM CRYSTAL Insulin Glargine 25 units 10/31/24 09:00 11/02/24 08:13 Insulin Glargine (*Bkc) 100 Units/Ml SUB-Q 25 units DAILY CRYSTAL Administration Insulin Glargine 25 units 11/01/24 21:00 11/01/24 21:01 Insulin Glargine (*Bkc) 100 Units/Ml SUB-Q 25 units HS CRYSTAL Administration Neomycin/Polymyxin/Bacitracin 1 applic 11/01/24 19:53 11/01/24 21:01 Neomycin/Polymyxin/Bacitracin Ointment 15 Gm Tube TOPICAL 1 applic Q12HR PRN Administration Right naris cut/discomfort Nicotine 1 patch 11/01/24 21:00 11/01/24 21:01 Nicotine (*Pbkc) 21 Mg Patch TRANSDERM 1 patch HS CRYSTAL Administration Ondansetron HCl 4 mg 10/30/24 13:27 Ondansetron Inj 4 Mg/2 Ml Vial IV PUSH Q4H PRN Nausea Labs Labs: Laboratory Results - last 24 hr 11/01/24 11/01/24 11/01/24 11:34 16:23 20:55 WBC RBC Hgb Hct MCV MCH MCHC RDW Plt Count MPV Immature Gran % (Auto) Neut % (Auto) Lymph % (Auto) [place] % (Auto) Eos % (Auto) Baso % (Auto) Lymph # (Auto) [place] # (Auto) Eos # (Auto) Baso # (Auto) Abs Immat Gran (auto) Absolute Neuts (auto) Absolute Nucleated RBC Nucleated RBC % Sodium Potassium Chloride Carbon Dioxide Anion Gap BUN Creatinine Estim Creat Clear Calc Estimated GFR Glucose POC Capillary Glucose 343 H 188 H 134 H Calcium Total Bilirubin AST ALT Alkaline Phosphatase Total Protein Albumin 11/02/24 11/02/24 05:15 07:34 WBC 4.7 RBC 4.59 L Hgb 13.8 L Hct 38.9 L MCV 84.7 MCH 30.1 MCHC 35.5 RDW 11.4 L Plt Count 204 MPV 10.1 Immature Gran % (Auto) 0.2 Neut % (Auto) 42.2 L Lymph % (Auto) 48.4 H [place] % (Auto) 7.1 Eos % (Auto) 1.7 Baso % (Auto) 0.4 Lymph # (Auto) 2.25 [place] # (Auto) 0.3 Eos # (Auto) 0.1 Baso # (Auto) 0.0 Abs Immat Gran (auto) 0.01 Absolute Neuts (auto) 2.0 Absolute Nucleated RBC 0.000 Nucleated RBC % 0.0 Sodium 135 L Potassium 4.2 Chloride 101 Carbon Dioxide 25 Anion Gap 9 BUN 15 Creatinine 1.11 Estim Creat Clear Calc 76 Estimated GFR > 60 Glucose 251 H POC Capillary Glucose 293 H Calcium 8.9 Total Bilirubin 0.6 AST 18 ALT 22 Alkaline Phosphatase 65 Total Protein 6.0 L Albumin 3.6
--- NOTE | 2024-11-02 08:26 | PM.DS ---
DS: Admitting Diagnosis Discharge Date 11/02/24 Admitting Diagnosis (1) DKA (diabetic ketoacidosis): Code(s): E11.10 - Type 2 diabetes mellitus with ketoacidosis without coma Status: Acute (2) Hyponatremia: Code(s): E87.1 - Hypo-osmolality and hyponatremia Status: Acute (3) Acute kidney injury: Code(s): N17.9 - Acute kidney failure, unspecified Status: Acute (4) Electrolyte imbalance: Code(s): E87.8 - Other disorders of electrolyte and fluid balance, not elsewhere classified Status: Acute (5) Tobacco use: Code(s): Z72.0 - Tobacco use Status: Acute DS: Discharge Diagnosis Discharge Diagnosis (1) DKA (diabetic ketoacidosis): Code(s): E11.10 - Type 2 diabetes mellitus with ketoacidosis without coma Status: Acute (2) Hyponatremia: Code(s): E87.1 - Hypo-osmolality and hyponatremia Status: Acute (3) Acute kidney injury: Code(s): N17.9 - Acute kidney failure, unspecified Status: Acute (4) Electrolyte imbalance: Code(s): E87.8 - Other disorders of electrolyte and fluid balance, not elsewhere classified Status: Acute (5) Tobacco use: Code(s): Z72.0 - Tobacco use Status: Acute DS: Summary Hospital Course Hospital Course: This is a 39-year-old male with a significant past medical history of diabetes which has been diet controlled who presented to the emergency room with increased urination, fatigue, dry mouth for the last 3-4 days. Patient states that he has history of diabetes but has always been diet controlled. Denies any nausea, vomiting, diarrhea, abdominal pain, chest pain, shortness a breath, fever, chills. Workup in the hospital included initial labs which showed a normal white blood cell count of 6.2, pH of 7.319, sodium 127, potassium 5.6, chloride 87, carbon dioxide 20, anion gap 20, creatinine 1.43, EGFR 56, initial blood sugar 857, hemoglobin A1c 10.2, phosphorus 7.2, alkaline phosphate 203, beta hydroxybutyrate 4.25. UA showed 3+ urine glucose, 3+ urine ketone, otherwise normal. Respiratory panel was negative for influenza a and B, RSV, COVID. Patient was given 2 L of normal saline and started on an insulin infusion for DKA protocol. Maintenance Of Way Supervisor consulted. The following med issues have been addressed during hospitalization DKA (diabetic ketoacidosis): Code(s): E11.10 - Type 2 diabetes mellitus with ketoacidosis without coma Status: Acute Assessment and Plan: 10/30: Presented the ED with complains of polyuria, polydipsia for the last 3-4 days prior to admission. Blood sugars were 857, positive beta hydroxybutyrate, anion gap of 20, acute kidney injury -patient was given 2 L IV fluid bolus in the ED, started on insulin infusion per DKA protocol -will give additional 1 L IV fluid bolus in the ICU -patient was transition to long-acting insulin and sliding scale insulin yesterday evening -currently on diabetic diet -10/31: Will increase to high-dose sliding scale and Lantus will also be increased as her blood sugars elevate -will give additional IV fluid bolus this morning -hemoglobin A1c is 10.2 this admission Glucose is not well controlled, increase Lantus 25 units b.i.d. and aspart 7 units t.i.d. with meal, continue high-dose insulin sliding scale 11/01. Glucose is controlled intact range, continue current treatments after discharge Acute kidney injury: Code(s): N17.9 - Acute kidney failure, unspecified Status: Acute Assessment and Plan: Patient with acute kidney injury, creatinine of 1.43, BUN 27, likely related to dehydration, polyuria due to DKA -patient being fluid resuscitated -creatinine is resolved -continue to monitor urine output, renal function and electrolytes Resolved Tobacco use: Code(s): Z72.0 - Tobacco use Status: Acute Assessment and Plan: Have counseled patient on cessation of tobacco use, he stated he is going to think about it Electrolyte imbalance: Code(s): E87.8 - Other disorders of electrolyte and fluid balance, not elsewhere classified Status: Acute Assessment and Plan: Hyponatremia likely related to DKA -resolved Hyperkalemia likely related to acidosis secondary to DKA -resolved Continue to monitor with fluid resuscitation Corrected Time Spent with Patient Time attestation: Total time spent providing and/or coordinating discharge services: Exam Narrative: GENERAL: Pleasant, in no acute distress. Well-nourished. - EYES: EOMI. Anicteric. - HENT: Moist mucous membranes. - LUNGS: Clear to auscultation bilaterally, no wheezing, rhonchi, or rales. - CARDIOVASCULAR: Regular rate and rhythm. No murmur. No JVD. - ABDOMEN: Soft, non-tender and non-distended. No palpable masses. - EXTREMITIES: No edema. Peripheral pulses 2+. Non-tender. - NEUROLOGIC: No focal neurological deficits. CN II-XII grossly intact. - PSYCHIATRIC: Awake, Alert and oriented x 3. Appropriate mood and affect. - SKIN: No rashes or lesions. Warm. - LYMPH: No cervical lymphadenopathy. DS: Data Data Completed and Pending Labs on day of discharge: Labs from last 24 hours 11/02/24 11/02/24 11/01/24 07:34 05:15 20:55 WBC 4.7 RBC 4.59 L Hgb 13.8 L Hct 38.9 L MCV 84.7 MCH 30.1 MCHC 35.5 RDW 11.4 L Plt Count 204 MPV 10.1 Immature Gran % (Auto) 0.2 Neut % (Auto) 42.2 L Lymph % (Auto) 48.4 H [place] % (Auto) 7.1 Eos % (Auto) 1.7 Baso % (Auto) 0.4 Lymph # (Auto) 2.25 [place] # (Auto) 0.3 Eos # (Auto) 0.1 Baso # (Auto) 0.0 Abs Immat Gran (auto) 0.01 Absolute Neuts (auto) 2.0 Absolute Nucleated RBC 0.000 Nucleated RBC % 0.0 Sodium 135 L Potassium 4.2 Chloride 101 Carbon Dioxide 25 Anion Gap 9 BUN 15 Creatinine 1.11 Estim Creat Clear Calc 76 Estimated GFR > 60 Glucose 251 H POC Capillary Glucose 293 H 134 H Calcium 8.9 Total Bilirubin 0.6 AST 18 ALT 22 Alkaline Phosphatase 65 Total Protein 6.0 L Albumin 3.6 11/01/24 11/01/24 16:23 11:34 WBC RBC Hgb Hct MCV MCH MCHC RDW Plt Count MPV Immature Gran % (Auto) Neut % (Auto) Lymph % (Auto) [place] % (Auto) Eos % (Auto) Baso % (Auto) Lymph # (Auto) [place] # (Auto) Eos # (Auto) Baso # (Auto) Abs Immat Gran (auto) Absolute Neuts (auto) Absolute Nucleated RBC Nucleated RBC % Sodium Potassium Chloride Carbon Dioxide Anion Gap BUN Creatinine Estim Creat Clear Calc Estimated GFR Glucose POC Capillary Glucose 188 H 343 H Calcium Total Bilirubin AST ALT Alkaline Phosphatase Total Protein Albumin Discharge Plan Discharge Attending physician on discharge: Vitor Kuo Consulting providers: Asha Schwartz Discharging Clinician: Vitor Kuo Anticipated Discharge Date/Time: 11/02/24 08:27 Patient Disposition: Home, Self-Care Activity: as tolerated Diet: as tolerated and diabetic Patient Instructions: Antibiotic Form, Basic Carbohydrate Counting (DC) Patient Language: Spanish Stand Alone Forms: General Discharge Information, Work/School Release IP Follow-up/Referrals: UNKNOWN,DOCTOR [Primary Care Provider] - (Patient needs to see primary care doctor in 1 week) Discharge Medications: New insulin glargine [Lantus U-100 Insulin] 100 unit/mL Solution 25 unit subcut BID Qty: 20 2RF insulin aspart U-100 [Novolog U-100 Insulin aspart] 100 unit/mL Solution 7 unit subcut TIDWM Qty: 10 0RF insulin aspart U-100 [Novolog U-100 Insulin aspart] 100 unit/mL Solution 4 - 8 unit subcut TIDWM Qty: 10 1RF Protocol: Insulin Corrective High-Dose Condition: glucose < 70 mg/dl Dose/Route: Follow hypoglycemia order Condition: glucose 70-200 mg/dl Dose/Route: No additional insulin Condition: glucose 201-250 mg/dl Dose/Route: 4 units sub-Q Condition: glucose 251-300 mg/dl Dose/Route: 5 units sub-Q Condition: glucose 301-350 mg/dl Dose/Route: 6 units sub-Q Condition: glucose 351-400 mg/dl Dose/Route: 8 units sub-Q Condition: glucose > 400 mg/dl Dose/Route: Call Protocol Text: *No Correction Dose at Bedtime* Rx Instructions: Instruction glucose < 70 mg/dl Follow hypoglycemia order glucose 70-200 mg/dl No additional insulin glucose 201-250 mg/dl 4 units sub-Q glucose 251-300 mg/dl 5 units sub-Q glucose 301-350 mg/dl 6 units sub-Q glucose 351-400 mg/dl 8 units sub-Q glucose > 400 mg/dl Call insulin aspart U-100 [Novolog U-100 Insulin aspart] 100 unit/mL Solution 2 - 4 unit subcut HS Qty: 10 0RF Protocol: Insulin Corrective High-Dose Condition: glucose < 70 mg/dl Dose/Route: Follow hypoglycemia order Condition: glucose 70-200 mg/dl Dose/Route: No additional insulin Condition: glucose 201-250 mg/dl Dose/Route: 2 units sub-Q Condition: glucose 251-300 mg/dl Dose/Route: 2 units sub-Q Condition: glucose 301-350 mg/dl Dose/Route: 3 units sub-Q Condition: glucose 351-400 mg/dl Dose/Route: 4 units sub-Q Condition: glucose > 400 mg/dl Dose/Route: Call MD Rx Instructions: Instruction glucose < 70 mg/dl Follow hypoglycemia order glucose 70-200 mg/dl No additional insulin glucose 201-250 mg/dl 2 units sub-Q glucose 251-300 mg/dl 2 units sub-Q glucose 301-350 mg/dl 3 units sub-Q glucose 351-400 mg/dl 4 units sub-Q glucose > 400 mg/dl Call MD (DME) blood-glucose meter [OneTouch Verio Flex meter] [facility] [place] Qty: 1 0RF Rx Instructions: May substitute to in-stock meter and/or covered by insurance. Use As Directed (DME) OneTouch Verio test strips Strip Qty: 1 0RF Rx Instructions: May substitute to in-stock and/or covered by insurance strips. Use As Directed (DME) lancets [OneTouch Delica Plus Lancet] 30 gauge [facility] [place] Qty: 1 0RF Rx Instructions: May substitute to in-stock and/or covered by insurance lancets. Use As Directed (DME) insulin syringe-needle U-100 [Easy Touch Insulin Syringe] 0.5 mL 30 gauge x 5/16 syringe See Rx Instructions .Route Qty: 150 0RF Rx Instructions: As directed (DME) diabetic supplies, miscellan. [facility] [place] See Rx Instructions .Route Qty: 25 0RF Rx Instructions: As directed (DME) blood-glucose meter [OneTouch Verio Flex meter] [facility] [place] Qty: 1 0RF Rx Instructions: May substitute to in-stock meter and/or covered by insurance. Use As Directed (DME) OneTouch Verio test strips Strip Qty: 1 0RF Rx Instructions: May substitute to in-stock and/or covered by insurance strips. Use As Directed (DME) lancets [OneTouch Delica Plus Lancet] 30 gauge [facility] [place] Qty: 1 0RF Rx Instructions: May substitute to in-stock and/or covered by insurance lancets. Use As Directed Date of admission: 11/01/24 11:07 Primary Care Provider: UNKNOWN,DOCTOR Admitting Provider: Vitor Kuo Attending physician on admission: Vitor Kuo Condition: Stable
--- NOTE | 2024-11-06 15:49 | PCCDE ---
11/06/24: 15:40 DM Educ courtesy follow up call placed. Pt denies questions related to DM/insulin. Checked glucose a little bit ago before meal: 73 Pt bought glucose tablets and states he knows what to do if glucose below 70. Has PCP appt end November. Will call office to try to get in sooner with recent DKA admission. TEJAS
== END 2024-11-02 11:53 | disposition home or self-care (01) | DRG 420 ==
LOC: ANHED 13:39 → ANHICU 13:40 → ANH2MED 10-31 21:27
PROVIDERS: Internal Medicine; Nurse Practitioner Acute Care; Admitting Provider Hospitalist; Emergency Provider Emergency Medicine; Visit Provider Hospitalist
DX: E11.10 Type 2 diabetes mellitus with ketoacidosis without coma (principal); N17.9 Acute kidney failure, unspecified; E87.5 Hyperkalemia; E87.1 Hypo-osmolality and hyponatremia; F17.210 Nicotine dependence, cigarettes, uncomplicated; Z20.822 Contact with and (suspected) exposure to COVID-19
CPT/HCPCS: 36415; 36600; 80048; 80053; 81003; 82010; 82375; 82805; 82948; 83036; 83050; 83735; 84100; 85018; 85025; 87637; 87641; 96360; 96361; 96365; 96366; 96368; 96372; 96375; 99291; A9270; G0378; G0379; J1650; J1815; J3480; J7030; J7120

== ENCOUNTER 2024-12-21 10:44 | Emergency (ER) | payer BC, SELFPAY ==
[2024-12-21 10:54] VITALS: BP 132/77; PULSE 74; RESP 18; TEMP 36.8; O2SAT 96
--- OUTSIDE RECORDS SUMMARY | 2024-12-21 10:54 | XMS_ITS | Clinical Summary ---
Author Organization [facility] Address [address] [place] [address] Phone Care Team Providers Care Cook Boat Name Role Phone Provider, None Primary Care [...] of Treatment Not on file Care Teams Cook Boat Relationship Specialty Start Date End Date Provider, None PR PCP - General 03/22/22
--- OUTSIDE RECORDS SUMMARY | 2024-12-21 10:54 | XMS_ITS | Data Portability ---
Author Organization [facility] [place] Rey Address [address] [place] [address] Care Team Providers Care Copy Reader Name Role Phone AILYN METZGER Primary Care Provider [phone] Assessment No assessment recorded. Plan of Treatment Reminders Order Date Submit Date Provider Last Modified By Organization Details Last Modified Time Details Appointments ANY 15 2024 10:15A Mliind Metzger MD Not available Not available Not available Lab RPR (rapid plasma reagin), serum 2024 025 [facility], [address], [place], [address], 11/23/2024 19:14:35 HIV 1 + 2, meaningfu l use set 2024 025 [facility], [address], [place], [address], 11/23/2024 19:14:37 chlamydia trachomat is + neisseria gonorrhoe ae + trichomon as vaginalis rRNA panel, SHELBY+probe 2024 025 [facility], [address], [place], [address], 12/12/2024 15:42:03 urinalysi s macro (dipstick ) panel, urine 2024 025 [facility], [address], [place], [address], 12/12/2024 15:42:03 CBC w/ auto diff 2024 025 [facility], [address], [place], [address], 11/23/2024 06:59:29 CMP, serum or plasma 2024 025 AN[facility], [address], [place], [address], 11/23/2024 06:59:27 HbA1c (hemoglob in A1c), blood 2024 025 [facility], [address], [place], [address], 11/23/2024 19:14:33 lipid panel, serum 2024 025 AN[facility], [address], [place], [address], 11/23/2024 06:59:26 albumin/c reatinine , mass ratio, urine 2024 025 [email or web address], [address], [place], [address], 12/12/2024 15:42:02 hsv (1+2) igg, serum 2023 024 [facility], [address], [place], [address], 04/07/2024 11:15:26 urinalysi s macro (dipstick ) panel, urine 2023 024 [facility] [address], [place], [address], 04/07/2024 09:14:31 basic metabolic 1998 panel, serum or plasma 2023 024 [facility], [address], [place], [address], 04/07/2024 09:14:30 CBC w/ auto diff 2023 024 [facility], [address], [place], [address], 02/26/2024 08:33:20 urinalysi s, dipstick 2023 024 [facility], [address], [place], [address], 02/26/2024 08:33:19 CMP, serum or plasma 2023 024 [facility], [address], [place], [address], 02/26/2024 08:33:18 lipid panel, serum 2023 024 [facility], [address], [place], [address], 02/26/2024 08:33:17 HIV 1 + 2, meaningfu l use set 2023 024 [facility], [address], [place], [address], 02/29/2024 06:17:01 Hepatitis C IgG Ab, qual, serum 2023 024 [facility], [address], [place], [address], 02/29/2024 06:16:56 chlamydia trachomat is + neisseria gonorrhoe ae + trichomon as vaginalis DNA panel, SHELBY+probe , unspecifi ed specimen 2023 024 [facility], [address], [place], [address], 02/29/2024 06:16:57 hsv (1+2) igg, serum 2023 [address] [facility], [address], [place], [address], 02/29/2024 06:16:56 HBsAg (hepatiti s B surface Ag), EIA, serum 2023 [address] [facility], [address], [place], [address], 02/29/2024 06:16:59 RPR (rapid plasma reagin), serum 2023 024 [facility], [address], [place], [address], 02/29/2024 06:16:59 HbA1c (hemoglob in A1c), blood 2023 024 [facility], [address], [place], [address], 02/29/2024 06:16:58 albumin/c reatinine , mass ratio, urine 2023 024 [facility], [address], [place], [address], 02/29/2024 06:16:55 Referral hand surgeon referral 2024 025 NI Cervantes MD, [address] , [address], [place], [address], 12/13/2024 15:06:40 orthopedi c surgeon referral - R. wrist pain 2023 024 [facility], [address], [place], [address], 11/22/2024 12:30:07 ophthalmo logist referral - [email or web address], [address], [place], [address], 03/21/2024 15:07:24 Procedures None recorded. Surgeries None recorded. Imaging XR, wrist + hand [address] [facility] ([facility]), [address], [place], [address], 11/25/2024 08:26:40 Medication Orders Kenalog 40 mg/mL suspensio n for injection 2024 025 triddlema Not available 11/27/2024 11:37:14 Viagra 100 mg tablet 2024 025 [facility], [address] [place], [place], [id number], 12/11/2024 15:35:29 Lantus Solostar U-100 Insulin 100 unit/mL (3 mL) subcutane ous pen 2024 025 [id number], [address] [place], [place], [id number], 11/21/2024 15:41:53 Humalog KwikPen (U-100) Insulin 100 unit/mL subcutane ous 2024 025 [facility] #[id number], [address] [place], [place], [id number], 11/22/2024 14:28:29 OneTouch Verio test strips 2024 025 [facility] #[id number], [address] [place], [place], [id number], 11/21/2024 15:43:29 meloxicam 15 mg tablet 2023 025 [facility] #[id number], [address] [place], [place], [id number], 11/21/2024 15:32:37 ofloxacin 0.3 % eye drops 2023 024 [id number], [address] [place], [id number], 04/06/2024 11:28:23 Patient TargetsNo targets recorded. Patient Instructions Encounter Date Encounter Id Patient Instructions Last Modified By Organization Details Last Modified Time 02/25/2024 [id number] tetanus and diphtheria booster: care instructions oajao Not available 02/25/2024 11:04:29 Quitting Tobacco : Care Instructions oajao Not available 02/25/2024 11:04:29 ER report from [facility] Labs Ophthalmology Ofloxacin eye drops Stop smoking Stop EES ointment Dentist ER if his eye symptoms worsen over the weekend Follow up in 4-6 weeks oajao Not available 02/25/2024 11:21:50 04/06/2024 [id number] proteinuria: car e instructions oajao Not available 04/06/2024 12:14:38 Lab results from [facility] 02/20/2023 Xray and ER report from 02/2024 Labs Low fat, low cholesterol diet Follow up in 4 weeks oajao Not available 04/06/2024 12:24:23 Detailed discussion oajao Not available 04/06/2024 16:29:58 11/21/2024 [id number] type 2 diabetes: care instructions oajao Not available 11/21/2024 15:27:52 learning about healthy weight oajao Not available 11/21/2024 15:28:33 Labs Continue Insulin Ophthalmology Viagra PRN Follow up in 4 weeks oajao Not available 11/21/2024 19:09:50 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 wrist pain R. wrist pain Referring Physician: Ailyn Metzger, Internal Medicine, Encounter Date: 04/06/2024 Hand Surgeon Referral for Ca rpal instability Referring Physician: Woo Joe, Plastic/Reconstructive Surg., Encounter Date: 12/08/2024 Results Created Date Observation Date Name Description Value Unit Range Abnormal Flag Note LastModifiedBy Organization Detail LastModifiedTime 02/25/20 24 02/26/2024 LIPID PANEL cholesterol, total 208 mg/dL 100-19 9 above high normal Not Available [facility] ([facility]) [address] [place], [address], 02/26/2024 08:33:17 02/25/20 24 02/26/2024 LIPID PANEL triglyceride s 90 mg/dL 0-149 Not Available [facility] ([facility]) [address] [place], [address], 02/26/2024 08:33:17 02/25/20 24 02/26/2024 LIPID PANEL HDL cholesterol 65 mg/dL >39 Not Available [facility] ([facility]) [address] [place], [address], 02/26/2024 08:33:17 02/25/20 24 02/26/2024 LIPID PANEL VLDL cholesterol lawanda 16 mg/dL 5-40 Not Available [facility] ([facility]) [address] [place], [address], 02/26/2024 08:33:17 02/25/20 24 02/26/2024 LIPID PANEL LDL chol calc ([facility]) 127 mg/dL 0-99 above high normal Not Available [facility] ([facility]) [address] [place], [address], 02/26/2024 08:33:17 02/25/20 24 02/26/2024 COMP. METAB OLIC PANEL (14) glucose 100 mg/dL 70-99 above high normal Not Available [facility] ([facility]) [address] [place], [address], 02/26/2024 08:33:18 02/25/20 24 02/26/2024 COMP. METAB OLIC PANEL (14) BUN 17 mg/dL 6-20 Not Available [facility] ([facility]) [address] [facility] [place], [address], 02/26/2024 08:33:18 02/25/20 24 02/26/2024 COMP. METAB OLIC PANEL (14) creatinine 1.33 mg/dL 0.76-1 .27 above high normal Not Available [facility] ([facility]) [address] [facility], [place], [address], 02/26/2024 08:33:18 02/25/20 24 02/26/2024 COMP. METAB OLIC PANEL (14) eGFR 71 mL/mi n/1.7 3 >59 Not Available [facility] ([facility]) [address] [facility], [place], [address], 02/26/2024 08:33:18 02/25/20 24 02/26/2024 COMP. METAB OLIC PANEL (14) BUN/creatini ne ratio 13 9-20 Not Available [facility] ([facility]) [address] [facility] [place], [address], 02/26/2024 08:33:18 02/25/20 24 02/26/2024 COMP. METAB OLIC PANEL (14) sodium 142 mmol/ L 134-14 4 Not Available [facility] ([facility]) [address] [facility] [place], [address], 02/26/2024 08:33:18 02/25/20 24 02/26/2024 COMP. METAB OLIC PANEL (14) potassium 4.5 mmol/ L 3.5-5. 2 Not Available [facility] ([facility]) [address] [facility] [place], [address], 02/26/2024 08:33:18 02/25/20 24 02/26/2024 COMP. METAB OLIC PANEL (14) chloride 100 mmol/ L 96-106 Not Available [facility] ([facility]) [address] [place], [address], 02/26/2024 08:33:18 02/25/20 24 02/26/2024 COMP. METAB OLIC PANEL (14) carbon dioxide, total 24 mmol/ L Not Available [facility] ([facility]) [address] [place], [address], 02/26/2024 08:33:18 02/25/20 24 02/26/2024 COMP. METAB OLIC PANEL (14) calcium 10.8 mg/dL 8.7-10 .2 above high normal Not Available [facility] ([facility]) [address] [place], [address], 02/26/2024 08:33:18 02/25/20 24 02/26/2024 COMP. METAB OLIC PANEL (14) protein, total 7.8 g/dL 6.0-8. 5 Not Available [facility] ([facility]) [address] [place], [address], 02/26/2024 08:33:18 02/25/20 24 02/26/2024 COMP. METAB OLIC PANEL (14) albumin 5.0 g/dL 4.1-5. 1 Not Available [facility] ([facility]) [address] [place], [address], 02/26/2024 08:33:18 02/25/20 24 02/26/2024 COMP. METAB OLIC PANEL (14) globulin, total 2.8 g/dL 1.5-4. 5 Not Available [facility] ([facility]) [address] [place], [address], 02/26/2024 08:33:18 02/25/20 24 02/26/2024 COMP. METAB OLIC PANEL (14) bilirubin, total 0.5 mg/dL 0.0-1. 2 Not Available [facility] ([facility]) [address] [place], [address], 02/26/2024 08:33:18 02/25/20 24 02/26/2024 COMP. METAB OLIC PANEL (14) alkaline phosphatase 69 IU/L 44-121 Not Available [facility] ([facility]) [address] [facility], [place], [address], 02/26/2024 08:33:18 02/25/20 24 02/26/2024 COMP. METAB OLIC PANEL (14) AST (SGOT) 22 IU/L 0-40 Not Available [facility] ([facility]) [address] [facility], [place], [address], 02/26/2024 08:33:18 02/25/20 24 02/26/2024 COMP. METAB OLIC PANEL (14) ALT (SGPT) 31 IU/L 0-44 Not Available [facility] ([facility]) [address] [facility], [place], [address], 02/26/2024 08:33:18 02/25/20 24 02/26/2024 MICRO SCOPI C EXAMI NATIO N WBC None seen /hpf 0-5 Not Available [facility] ([facility]) [address] [facility], [place], [address], 02/26/2024 08:33:18 02/25/20 24 02/26/2024 MICRO SCOPI C EXAMI NATIO N RBC None seen /hpf 0-2 Not Available [facility] ([facility]) [address] [facility], [place], [address], 02/26/2024 08:33:18 02/25/20 24 02/26/2024 MICRO SCOPI C EXAMI NATIO N epithelial cells (non renal) None seen /hpf 0-10 Not Available [facility] ([facility]) [address] [facility], [place], [address], 02/26/2024 08:33:18 02/25/20 24 02/26/2024 MICRO SCOPI C EXAMI NATIO N casts None seen /lpf nonese en Not Available [facility] ([facility]) [address] [facility], [place], [address], 02/26/2024 08:33:18 02/25/20 24 02/26/2024 MICRO SCOPI C EXAMI NATIO N bacteria None seen nonese en/few Not Available [facility] ([facility]) [address] [facility], [place], [address], 02/26/2024 08:33:18 02/25/20 24 02/26/2024 URINA LYSIS , ROUTI NE specific gravity >=1.03 0 1.005- 1.030 abnormal Not Available [facility] ([facility]) [address] [facility], [place], [address], 02/26/2024 08:33:19 02/25/20 24 02/26/2024 URINA LYSIS , ROUTI NE pH 5.5 5.0-7. 5 Not Available [facility] ([facility]) [address] [facility], [place], [address], 02/26/2024 08:33:19 02/25/20 24 02/26/2024 URINA LYSIS , ROUTI NE urine-color YELLOW yellow Not Available [facility] ([facility]) [address] [facility], [place], [address], 02/26/2024 08:33:19 02/25/20 24 02/26/2024 URINA LYSIS , ROUTI NE appearance CLEAR clear Not Available [facility] ([facility]) [address] [facility], [place], [address], 02/26/2024 08:33:19 02/25/20 24 02/26/2024 URINA LYSIS , ROUTI NE WBC esterase NEGATI VE negati ve Not Available [facility] ([facility]) [address] [facility], [place], [address], 02/26/2024 08:33:19 02/25/20 24 02/26/2024 URINA LYSIS , ROUTI NE protein 1+ negati ve/tra ce abnormal Not Available [facility] ([facility]) [address] [place], [address], 02/26/2024 08:33:19 02/25/20 24 02/26/2024 URINA LYSIS , ROUTI NE glucose NEGATI VE negati ve Not Available [facility] ([facility]) [address] [place], [address], 02/26/2024 08:33:19 02/25/20 24 02/26/2024 URINA LYSIS , ROUTI NE ketones NEGATI VE negati ve Not Available [facility] ([facility]) [address] [place], [address], 02/26/2024 08:33:19 02/25/20 24 02/26/2024 URINA LYSIS , ROUTI NE occult blood NEGATI VE negati ve Not Available [facility] ([facility]) [address] [place], [address], 02/26/2024 08:33:19 02/25/20 24 02/26/2024 URINA LYSIS , ROUTI NE bilirubin NEGATI VE negati ve Not Available [facility] ([facility]) [address] [place], [address], 02/26/2024 08:33:19 02/25/20 24 02/26/2024 URINA LYSIS , ROUTI NE urobilinogen ,semi-qn 0.2 mg/dL 0.2-1. 0 Not Available [facility] ([facility]) [address] [place], [address], 02/26/2024 08:33:19 02/25/20 24 02/26/2024 URINA LYSIS , ROUTI NE nitrite, urine NEGATI VE negati ve Not Available [facility] ([facility]) [address] [place], [address], 02/26/2024 08:33:19 02/25/20 24 02/26/2024 MARLI RODRIGUEZ , NADIA NE microscopic examination SEE BELOW: Bharat ruvalcaba was indic ated and was perfo rmed. Not Available [facility] ([facility]) [address] [facility], [place], [address], 02/26/2024 08:33:19 02/25/20 24 02/26/2024 CBC WITH DIFFE RENTI AL/PL ATELE T WBC 4.8 x10e3 /uL 3.4-10 .8 Not Available [facility] ([facility]) [address] [place], [address], 02/26/2024 08:33:20 02/25/20 24 02/26/2024 CBC WITH DIFFE RENTI AL/PL ATELE T RBC 5.43 x10e6 /uL 4.14-5 .80 Not Available [facility] ([facility]) [address] [facility], [place], [address], 02/26/2024 08:33:20 02/25/20 24 02/26/2024 CBC WITH DIFFE RENTI AL/PL ATELE T hemoglobin 17.2 g/dL 13.0-1 7.7 Not Available [facility] ([facility]) [address] [facility], [place], [address], 02/26/2024 08:33:20 02/25/20 24 02/26/2024 CBC WITH DIFFE RENTI AL/PL ATELE T hematocrit 50.2 % 37.5-5 1.0 Not Available [facility] ([facility]) [address] [place], [address], 02/26/2024 08:33:20 02/25/20 24 02/26/2024 CBC WITH DIFFE RENTI AL/PL ATELE T MCV 92 fL 79-97 Not Available [facility] ([facility]) [address] [facility], [place], [address], 02/26/2024 08:33:20 02/25/20 24 02/26/2024 CBC WITH DIFFE RENTI AL/PL ATELE T MCH 31.7 pg 26.6-3 3.0 Not Available [facility] ([facility]) [address] [facility], [place], [address], 02/26/2024 08:33:20 02/25/20 24 02/26/2024 CBC WITH DIFFE RENTI AL/PL ATELE T MCHC 34.3 g/dL 31.5-3 5.7 Not Available [facility] ([facility]) [address] [facility], [place], [address], 02/26/2024 08:33:20 02/25/20 24 02/26/2024 CBC WITH DIFFE RENTI AL/PL ATELE T RDW 12.4 % 11.6-1 5.4 Not Available [facility] ([facility]) [address] [facility], [place], [address], 02/26/2024 08:33:20 02/25/20 24 02/26/2024 CBC WITH DIFFE RENTI AL/PL ATELE T platelets 262 x10e3 /uL 150-45 0 Not Available [facility] ([facility]) [address] [facility], [place], [address], 02/26/2024 08:33:20 02/25/20 24 02/26/2024 CBC WITH DIFFE RENTI AL/PL ATELE T neutrophils 59 % notest ab. Not Available [facility] ([facility]) [address] [facility], [place], [address], 02/26/2024 08:33:20 02/25/20 24 02/26/2024 CBC WITH DIFFE RENTI AL/PL ATELE T lymphs 27 % notest ab. Not Available [facility] ([facility]) [address] [facility], [place], [address], 02/26/2024 08:33:20 02/25/20 24 02/26/2024 CBC WITH DIFFE RENTI AL/PL ATELE T monocytes 10 % notest ab. Not Available [facility] ([facility]) [address] [facility], [place], [address], 02/26/2024 08:33:20 02/25/20 24 02/26/2024 CBC WITH DIFFE RENTI AL/PL ATELE T eos 4 % notest ab. Not Available [facility] ([facility]) [address] [facility], [place], [address], 02/26/2024 08:33:20 02/25/20 24 02/26/2024 CBC WITH DIFFE RENTI AL/PL ATELE T basos 0 % notest ab. Not Available [facility] ([facility]) [address] [facility], [place], [address], 02/26/2024 08:33:20 02/25/20 24 02/26/2024 CBC WITH DIFFE RENTI AL/PL ATELE T neutrophils (absolute) 2.8 x10e3 /uL 1.4-7. 0 Not Available [facility] ([facility]) [address] [facility], [place], [address], 02/26/2024 08:33:20 02/25/20 24 02/26/2024 CBC WITH DIFFE RENTI AL/PL ATELE T lymphs (absolute) 1.3 x10e3 /uL 0.7-3. 1 Not Available [facility] ([facility]) [address] [place], [address], 02/26/2024 08:33:20 02/25/20 24 02/26/2024 CBC WITH DIFFE RENTI AL/PL ATELE T monocytes(ab solute) 0.5 x10e3 /uL 0.1-0. 9 Not Available [facility] ([facility]) [address] [place], [address], 02/26/2024 08:33:20 02/25/20 24 02/26/2024 CBC WITH DIFFE RENTI AL/PL ATELE T eos (absolute) 0.2 x10e3 /uL 0.0-0. 4 Not Available [facility] ([facility]) [address] [facility], [place], [address], 02/26/2024 08:33:20 02/25/20 24 02/26/2024 CBC WITH DIFFE RENTI AL/PL ATELE T baso (absolute) 0.0 x10e3 /uL 0.0-0. 2 Not Available [facility] ([facility]) [address] [facility], [place], [address], 02/26/2024 08:33:20 02/25/20 24 02/26/2024 CBC WITH DIFFE RENTI AL/PL ATELE T immature granulocytes 0 % notest ab. Not Available [facility] ([facility]) [address] [facility], [place], [address], 02/26/2024 08:33:20 02/25/20 24 02/26/2024 CBC WITH DIFFE RENTI AL/PL ATELE T immature grans (abs) 0.0 x10e3 /uL 0.0-0. 1 Not Available [facility] ([facility]) [address] [facility], [place], [address], 02/26/2024 08:33:20 02/25/20 24 02/26/2024 ALBUM IN/CR EATIN INE RATIO ,URIN E creatinine, urine 334.9 mg/dL notest ab. Not Available [facility] ([facility]) [address] [facility], [place], [address], 02/29/2024 06:16:55 02/25/20 24 02/26/2024 ALBUM IN/CR EATIN INE RATIO ,URIN E albumin, urine 83.1 ug/mL notest ab. Not Available [facility] ([facility]) [address] [facility], [place], [address], 02/29/2024 06:16:55 02/25/20 24 02/26/2024 ALBUM IN/CR EATIN INE RATIO ,URIN E alb/creat ratio 25 mg/g_ creat 0-29 Abena l: 0 - 29 Moder ately incre ased: 30 - 300 Sever odilia incre ased: >300 Not Available [facility] ([facility]) [address] [facility], [place], [address], 02/29/2024 06:16:55 02/25/20 24 02/26/2024 HCV ANTIB [...] e HCV infec tion. Not Available [facility] ([facility]) [address] [facility], [place], [address], 02/29/2024 06:16:56 02/25/20 24 02/26/2024 HSV 1 [...] gabriel to HSV-1 . Not Available [facility] ([facility]) [address] [facility], [place], [address], 02/29/2024 06:16:56 02/25/20 24 02/26/2024 HSV 1 [...] resul ts shoul d be clini kelly levar contreras . Not Available [facility] ([facility]) [address] [place], [address], 02/29/2024 06:16:56 02/25/2002/29/2024 CT, NG, TRICH VAG BY SHELBY chlamydia by SHELBY NEGATI VE negati ve Not Available [facility] ([facility]) [address] [place], [address], 02/29/2024 06:16:57 02/25/20 24 02/29/2024 CT, NG, TRICH VAG BY SHELBY gonococcus by SHELBY NEGATI VE negati ve Not Available [facility] ([facility]) [address] [place], [address], 02/29/2024 06:16:57 02/25/20 24 02/29/2024 CT, NG, TRICH VAG BY SHELBY trich vag by SHELBY NEGATI VE negati ve Not Available [facility] ([facility]) [address] [place], [address], 02/29/2024 06:16:57 02/25/20 24 02/26/2024 HEMOG LOBIN A1C hemoglobin A1C 5.8 % 4.8-5. 6 above high normal Predi abete s: 5.7 - 6.4 Diabe gato: >6.4 Glyce kristin contr ol for adult s with diabe gato: <7.0 Not Available [facility] ([facility]) [address] [place], [address], 02/29/2024 06:16:58 02/25/20 24 02/26/2024 HBSAG SCREE N HBsAg screen NEGATI VE negati ve Not Available [facility] ([facility]) [address] [place], [address], 02/29/2024 06:16:58 02/25/20 24 02/26/2024 RPR, RFX QN RPR/C ONFIR M TP RPR REACTI VE nonrea ctive abnormal Not Available [facility] ([facility]) [address] [place], [address], 02/29/2024 06:16:59 02/25/2002/26/2024 RPR QN+TP ABS RPR, quant. 1:2 titer nonrea <1:1 above high normal Not Available [facility] ([facility]) [address] [place], [address], 02/29/2024 06:17:00 02/25/2002/26/2024 RPR QN+TP ABS interpretati on: Commen t Syphi lis: RPR with Refle x to RPR Titer and Trepo nemal Antib odies , Tradi kosta l Scree rogelio and Diagn osis Algor [facility] ----- ----- ----- ----- ----- ----- ----- [...] early ) syphi lis. Not Available [facility] ([facility]) [address] [facility], [place], [address], 02/29/2024 06:17:00 02/25/20 24 02/28/2024 RPR QN+TP ABS treponema pallidum antibodies Reacti ve nonrea ctive abnormal Not Available [facility] ([facility]) [address] [facility], [place], [address], 02/29/2024 06:17:00 02/25/20 24 02/26/2024 HIV AB/P2 4 AG WITH REFLE X HIV Ab/P24 Ag screen NON REACTI VE nonrea ctive HIV-1 /HIV- 2 antib odies and HIV-1 p24 antig en were NOT detec gabriel. There is no labor atory evide nce of HIV infec tion. HIV Negat elida Not Available [facility] ([facility]) [address] [place], [address], 02/29/2024 06:17:01 04/06/20 24 04/07/2024 BASIC METAB OLIC PANEL (7) glucose 90 mg/dL 70-99 Not Available [facility] ([facility]) [address] [place], [address], 04/07/2024 09:14:30 04/06/20 24 04/07/2024 BASIC METAB OLIC PANEL (7) BUN 18 mg/dL 6-20 Not Available [facility] ([facility]) [address] [place], [address], 04/07/2024 09:14:30 04/06/20 24 04/07/2024 BASIC METAB OLIC PANEL (7) creatinine 1.16 mg/dL 0.76-1 .27 Not Available [facility] ([facility]) [address] [place], [address], 04/07/2024 09:14:30 04/06/20 24 04/07/2024 BASIC METAB OLIC PANEL (7) eGFR 83 mL/mi n/1.7 3 >59 Not Available [facility] ([facility]) [address] [place], [address], 04/07/2024 09:14:30 04/06/20 24 04/07/2024 BASIC METAB OLIC PANEL (7) BUN/creatini ne ratio 16 9-20 Not Available [facility] ([facility]) [address] [place], [address], 04/07/2024 09:14:30 04/06/20 24 04/07/2024 BASIC METAB OLIC PANEL (7) sodium 141 mmol/ L 134-14 4 Not Available [facility] ([facility]) [address] [place], [address], 04/07/2024 09:14:30 04/06/20 24 04/07/2024 BASIC METAB OLIC PANEL (7) potassium 5.2 mmol/ L 3.5-5. 2 Not Available [facility] ([facility]) [address] [place], [address], 04/07/2024 09:14:30 04/06/20 24 04/07/2024 BASIC METAB OLIC PANEL (7) chloride 100 mmol/ L 96-106 Not Available [facility] ([facility]) [address] [place], [address], 04/07/2024 09:14:30 04/06/20 24 04/07/2024 BASIC METAB OLIC PANEL (7) carbon dioxide, total 25 mmol/ L 20-29 Not Available [facility] ([facility]) [address] [place], [address], 04/07/2024 09:14:30 04/06/20 24 04/07/2024 URINA LYSIS , ROUTI NE specific gravity 1.020 1.005- 1.030 Not Available [facility] ([facility]) [address] [place], [address], 04/07/2024 09:14:31 04/06/20 24 04/07/2024 URINA LYSIS , ROUTI NE pH 6.0 5.0-7. 5 Not Available [facility] ([facility]) [address] [place], [address], 04/07/2024 09:14:31 04/06/20 24 04/07/2024 URINA LYSIS , ROUTI NE urine-color YELLOW yellow Not Available [facility] ([facility]) [address] [facility], [place], [address], 04/07/2024 09:14:31 04/06/20 24 04/07/2024 URINA LYSIS , ROUTI NE appearance CLEAR clear Not Available [facility] ([facility]) [address] [facility], [place], [address], 04/07/2024 09:14:31 04/06/20 24 04/07/2024 URINA LYSIS , ROUTI NE WBC esterase NEGATI VE negati ve Not Available [facility] ([facility]) [address] [facility], [place], [address], 04/07/2024 09:14:31 04/06/20 24 04/07/2024 URINA LYSIS , ROUTI NE protein NEGATI VE negati ve/tra ce Not Available [facility] ([facility]) [address] [facility], [place], [address], 04/07/2024 09:14:31 04/06/20 24 04/07/2024 URINA LYSIS , ROUTI NE glucose NEGATI VE negati ve Not Available [facility] ([facility]) [address] [facility], [place], [address], 04/07/2024 09:14:31 04/06/20 24 04/07/2024 URINA LYSIS , ROUTI NE ketones NEGATI VE negati ve Not Available [facility] ([facility]) [address] [facility], [place], [address], 04/07/2024 09:14:31 04/06/20 24 04/07/2024 URINA LYSIS , ROUTI NE occult blood NEGATI VE negati ve Not Available [facility] ([facility]) [address] [facility], [place], [address], 04/07/2024 09:14:31 04/06/20 24 04/07/2024 URINA LYSIS , ROUTI NE bilirubin NEGATI VE negati ve Not Available [facility] ([facility]) [address] [facility], [place], [address], 04/07/2024 09:14:31 04/06/20 24 04/07/2024 URINA LYSIS , ROUTI NE urobilinogen ,semi-qn 0.2 mg/dL 0.2-1. 0 Not Available [facility] ([facility]) [address] [facility], [place], [address], 04/07/2024 09:14:31 04/06/20 24 04/07/2024 URINA LYSIS , ROUTI NE nitrite, urine NEGATI VE negati ve Not Available [facility] ([facility]) [address] [facility], [place], [address], 04/07/2024 09:14:31 04/06/20 24 04/07/2024 URINA LYSIS , ROUTI NE microscopic examination COMMEN T Micro scopi c not indic ated and not perfo rmed. Not Available [facility] ([facility]) [address] [facility], [place], [address], 04/07/2024 09:14:31 04/06/20 24 04/07/2024 HSV 1 [...] gabriel to HSV-1 . Not Available [facility] ([facility]) [address] [facility], [place], [address], 04/07/2024 11:15:26 04/06/20 24 04/07/2024 HSV 1 [...] ng, or testi ng by a diffe rent darci coleman, may be indic ated in some setti ngs (e.g. patie nts with low likel ihood of HSV infec tion) . If clini kelly appro priat e, retes t 4 to 6 weeks later . HSV-2 IgG antib tana testi ng resul ts shoul d be clini kellynighat contreras . Not Available [facility] ([facility]) [address] [place], [address], 04/07/2024 11:15:26 11/23/19 25 11/22/2024 LIPID PANEL cholesterol, total 223 mg/dL 100-19 9 above high normal Not Available [facility] ([facility]) [address] [place], [address], 11/23/2024 06:59:26 11/23/19 25 11/22/2024 LIPID PANEL triglyceride s 76 mg/dL 0-149 Not Available [facility] ([facility]) [address] [place], [address], 11/23/2024 06:59:26 11/23/19 25 11/22/2024 LIPID PANEL HDL cholesterol 70 mg/dL 40-999 Not Available [facility] ([facility]) [address] [place], [address], 11/23/2024 06:59:26 11/23/19 25 11/22/2024 LIPID PANEL VLDL cholesterol lawanda 15 mg/dL 5-40 Not Available [facility] ([facility]) [address] [place], [address], 11/23/2024 06:59:26 11/23/19 25 11/22/2024 LIPID PANEL LDL chol calc ([facility]) 149 mg/dL 0-99 above high normal Not Available [facility] ([facility]) [address] [place], [address], 11/23/2024 06:59:26 11/23/19 25 11/22/2024 COMP. METAB OLIC PANEL (14) glucose 96 mg/dL 70-99 Not Available [facility] ([facility]) [address] [place], [address], 11/23/2024 06:59:27 11/23/19 25 11/22/2024 COMP. METAB OLIC PANEL (14) BUN 18 mg/dL 6-20 Not Available [facility] ([facility]) [address] [place], [address], 11/23/2024 06:59:27 11/23/19 25 11/22/2024 COMP. METAB OLIC PANEL (14) creatinine 1.05 mg/dL 0.76-1 .27 Not Available [facility] ([facility]) [address] [place], [address], 11/23/2024 06:59:27 11/23/19 25 11/22/2024 COMP. METAB OLIC PANEL (14) eGFR 94 >=60 Units for eGFR value s are mL/mi n/1.7 3 The eGFR Calcu latio n has not been valid ated for patie nts under the age of 18. If test resul ts are displ ayed for a patie nt under the age of 18, disre kyler that value . Not Available [facility] ([facility]) [address] [facility] [place], [address], 11/23/2024 06:59:27 11/23/19 25 11/22/2024 COMP. METAB OLIC PANEL (14) BUN/creatini ne ratio 17 9-20 Not Available [facility] ([facility]) [address] [facility] [place], [address], 11/23/2024 06:59:27 11/23/19 25 11/22/2024 COMP. METAB OLIC PANEL (14) sodium 142 mmol/ L 134-14 4 Not Available [facility] ([facility]) [address] [facility], [place], [address], 11/23/2024 06:59:27 11/23/19 25 11/22/2024 COMP. METAB OLIC PANEL (14) potassium 4.5 mmol/ L 3.5-5. 2 Not Available [facility] ([facility]) [address] [facility] [place], [address], 11/23/2024 06:59:27 11/23/19 25 11/22/2024 COMP. METAB OLIC PANEL (14) chloride 103 mmol/ L 96-106 Not Available [facility] ([facility]) [address] [place], [address], 11/23/2024 06:59:27 11/23/19 25 11/22/2024 COMP. METAB OLIC PANEL (14) carbon dioxide, total 26 mmol/ L 20-29 Not Available [facility] ([facility]) [address] [place], [address], 11/23/2024 06:59:27 11/23/19 25 11/22/2024 COMP. METAB OLIC PANEL (14) calcium 10.1 mg/dL 8.7-10 .2 Not Available [facility] ([facility]) [address], [place], [address], 11/23/2024 06:59:27 11/23/19 25 11/22/2024 COMP. METAB OLIC PANEL (14) protein, total 7.4 g/dL 6.0-8. 5 Not Available [facility] ([facility]) [address], [place], [address], 11/23/2024 06:59:27 11/23/19 25 11/22/2024 COMP. METAB OLIC PANEL (14) albumin 4.9 g/dL 4.1-5. 1 Not Available [facility] ([facility]) [address] [place], [address], 11/23/2024 06:59:27 11/23/19 25 11/22/2024 COMP. METAB OLIC PANEL (14) globulin, total 2.5 g/dL 1.5-4. 5 Not Available [facility] ([facility]) [address], [place], [address], 11/23/2024 06:59:27 11/23/19 25 11/22/2024 COMP. METAB OLIC PANEL (14) A/G ratio 2.0 1.2-2. 2 Not Available [facility] ([facility] [address] [facility] [place], [address], 11/23/2024 06:59:27 11/23/19 25 11/22/2024 COMP. METAB OLIC PANEL (14) bilirubin, total 0.4 mg/dL 0.0-1. 2 Not Available [facility] ([facility] [address] [facility] [place], [address], 11/23/2024 06:59:27 11/23/19 25 11/22/2024 COMP. METAB OLIC PANEL (14) alkaline phosphatase 70 IU/L 44-121 Not Available [facility] ([facility]) [address], [place], [address], 11/23/2024 06:59:27 11/23/19 25 11/22/2024 COMP. METAB OLIC PANEL (14) AST (SGOT) 21 U/L 0-40 Not Available [facility] ([facility]) [address] [place], [address], 11/23/2024 06:59:27 11/23/19 25 11/22/2024 COMP. METAB OLIC PANEL (14) ALT (SGPT) 26 IU/L 0-44 Not Available [facility] ([facility]) [address] [place], [address], 11/23/2024 06:59:27 11/23/19 25 11/22/2024 UNABL E TO VOID unable to void Commen t Patie nt unabl e to void. Urine to be colle cted at a later date. Not Available [facility] ([facility]) [address] [place], [address], 11/23/2024 06:59:28 11/23/19 25 11/22/2024 CBC WITH DIFFE RENTI AL/PL ATELE T WBC 4.9 x10e3 /uL 3.4-10 .8 Not Available [facility] ([facility]) [address] [place], [address], 11/23/2024 06:59:29 11/23/19 25 11/22/2024 CBC WITH DIFFE RENTI AL/PL ATELE T RBC 4.84 x10e6 /uL 4.14-5 .80 Not Available [facility] ([facility]) [address] [place], [address], 11/23/2024 06:59:29 11/23/19 25 11/22/2024 CBC WITH DIFFE RENTI AL/PL ATELE T hemoglobin 14.8 g/dL 13.0-1 7.7 Not Available [facility] ([facility]) [address] [place], [address], 11/23/2024 06:59:29 11/23/19 25 11/22/2024 CBC WITH DIFFE RENTI AL/PL ATELE T hematocrit 43.8 % 37.5-5 1.0 Not Available [facility] ([facility]) [address] [facility], [place], [address], 11/23/2024 06:59:29 11/23/19 25 11/22/2024 CBC WITH DIFFE RENTI AL/PL ATELE T MCV 91 fL 79-97 Not Available [facility] ([facility]) [address] [place], [address], 11/23/2024 06:59:29 11/23/19 25 11/22/2024 CBC WITH DIFFE RENTI AL/PL ATELE T MCH 30.6 pg 26.6-3 3.0 Not Available [facility] ([facility]) [address] [place], [address], 11/23/2024 06:59:29 11/23/19 25 11/22/2024 CBC WITH DIFFE RENTI AL/PL ATELE T MCHC 33.8 g/dL 31.5-3 5.7 Not Available [facility] ([facility]) [address] [place], [address], 11/23/2024 06:59:29 11/23/19 25 11/22/2024 CBC WITH DIFFE RENTI AL/PL ATELE T RDW 13.0 % 11.5-1 4.5 Not Available [facility] ([facility]) [address] [place], [address], 11/23/2024 06:59:29 11/23/19 25 11/22/2024 CBC WITH DIFFE RENTI AL/PL ATELE T platelets 235 x10e3 /uL 150-45 0 Not Available [facility] ([facility]) [address] [place], [address], 11/23/2024 06:59:29 11/23/19 25 11/22/2024 CBC WITH DIFFE RENTI AL/PL ATELE T neutrophils 41 % notest b. Not Available [facility] ([facility]) [address] [facility], [place], [address], 11/23/2024 06:59:29 11/23/19 25 11/22/2024 CBC WITH DIFFE RENTI AL/PL ATELE T lymphs 49 % notest b. Not Available [facility] ([facility]) [address] [facility], [place], [address], 11/23/2024 06:59:29 11/23/19 25 11/22/2024 CBC WITH DIFFE RENTI AL/PL ATELE T monocytes 8 % notest b. Not Available [facility] ([facility]) [address] [facility], [place], [address], 11/23/2024 06:59:29 11/23/19 25 11/22/2024 CBC WITH DIFFE RENTI AL/PL ATELE T eos 2 % notest b. Not Available [facility] ([facility]) [address] [facility], [place], [address], 11/23/2024 06:59:29 11/23/19 25 11/22/2024 CBC WITH DIFFE RENTI AL/PL ATELE T basos 0 % notest b. Not Available [facility] ([facility]) [address] [place], [address], 11/23/2024 06:59:29 11/23/19 25 11/22/2024 CBC WITH DIFFE RENTI AL/PL ATELE T neutrophils (absolute) 2.0 x10e3 /uL 1.4-7. 0 Not Available [facility] ([facility]) [address] [place], [address], 11/23/2024 06:59:29 11/23/19 25 11/22/2024 CBC WITH DIFFE RENTI AL/PL ATELE T lymphs (absolute) 2.4 x10e3 /uL 0.7-3. 1 Not Available [facility] ([facility]) [address] [facility], [place], [address], 11/23/2024 06:59:29 11/23/19 25 11/22/2024 CBC WITH DIFFE RENTI AL/PL ATELE T monocytes(ab solute) 0.4 x10e3 /uL 0.1-0. 9 Not Available [facility] ([facility]) [address] [place], [address], 11/23/2024 06:59:29 11/23/19 25 11/22/2024 CBC WITH DIFFE RENTI AL/PL ATELE T eos (absolute) 0.1 x10e3 /uL 0.0-0. 4 Not Available [facility] ([facility]) [address] [facility], [place], [address], 11/23/2024 06:59:29 11/23/19 25 11/22/2024 CBC WITH DIFFE RENTI AL/PL ATELE T baso (absolute) 0.0 x10e3 /uL 0.0-0. 2 Not Available [facility] ([facility]) [address] [place], [address], 11/23/2024 06:59:29 11/23/19 25 11/22/2024 CBC WITH DIFFE RENTI AL/PL ATELE T immature granulocytes 0.2 % notest b. Not Available [facility] ([facility]) [address] [place], [address], 11/23/2024 06:59:29 11/23/19 25 11/22/2024 CBC WITH DIFFE RENTI AL/PL ATELE T immature grans (abs) 0.0 x10e3 /uL 0.0-0. 1 Not Available [facility] ([facility]) [address] [place], [address], 11/23/2024 06:59:29 11/23/19 25 11/22/2024 CBC WITH DIFFE RENTI AL/PL ATELE T NRBC 0 % 0-0 Not Available [facility] ([facility]) [address] [facility], [place], [address], 11/23/2024 06:59:29 11/23/19 25 11/23/2024 SPECI MEN STATU S REPOR T specimen status report TNP Test not perfo rmed. Patie nt was unabl e to provi de a self- colle cted speci men for the reque sted testi ng. The follo wing test( s) were not perfo rmed: TEST: 0 Ct, Ng, Trich vag by SHELBY [id number] Album in/Cr eatin ine Ratio ,Urin e Not Available [facility] ([facility]) [address] [facility], [place], [address], 11/23/2024 19:14:32 11/23/19 25 11/22/2024 UNABL E TO VOID unable to void Commen t Patie nt unabl e to void. Urine to be colle cted at a later date. Not Available [facility] ([facility]) [address] [place], [address], 11/23/2024 19:14:33 11/23/19 25 11/23/2024 HEMOG LOBIN A1C hemoglobin A1C 9.6 % 4.8-5. 6 above high normal Predi abete s: 5.7 - 6.4 Diabe gato: >6.4 Glyce kristin contr ol for adult s with diabe gato: <7.0 Not Available [facility] ([facility]) [address] [place], [address], 11/23/2024 19:14:33 11/23/19 25 11/23/2024 RPR, RFX QN RPR/C ONFIR M TP RPR REACTI VE nonrea ctive abnormal Not Available [facility] ([facility]) [address] [facility], [place], [address], 11/23/2024 19:14:35 11/23/19 25 11/23/2024 RPR QN+TP ABS RPR, quant. 1:2 titer nonrea <1:1 above high normal Not Available [facility] ([facility]) [address] [place], [address], 11/23/2024 19:14:36 11/23/19 25 11/23/2024 RPR QN+TP ABS treponema pallidum antibodies Reacti ve nonrea ctive abnormal Not Available [facility] ([facility]) [address] [facility], [place], [address], 11/23/2024 19:14:36 11/23/19 25 11/23/2024 RPR QN+TP ABS interpretati on: Ricardo t Syphi lis: RPR with Refle x [...] early ) syphi lis. Not Available [facility] ([facility]) [address] [place], [address], 11/23/2024 19:14:36 11/23/1911/23/2024 HIV AB/P2 4 AG WITH REFLE X HIV Ab/P24 Ag screen NON REACTI VE nonrea ctive HIV-1 /HIV- 2 antib odies and HIV-1 p24 antig en were NOT detec gabriel. There is no labor atory evide nce of HIV infec tion. HIV Negat elida Not Available [facility] ([facility]) [address] [place], [address], 11/23/2024 19:14:36 12/07/1912/07/2024 URINA LYSIS , ROUTI NE specific gravity 1.024 1.005- 1.030 Not Available [facility] ([facility]) [address] [place], [address], 12/07/2024 06:53:02 12/07/1912/07/2024 URINA LYSIS , ROUTI NE pH 5.5 5.0-7. 5 Not Available [facility] ([facility]) [address] [place], [address], 12/07/2024 06:53:02 12/07/1912/07/2024 URINA LYSIS , ROUTI NE urine-color YELLOW yellow Not Available [facility] ([facility]) [address] [facility], [place], [address], 12/07/2024 06:53:02 12/07/19 25 12/07/2024 URINA LYSIS , ROUTI NE appearance CLEAR clear Not Available [facility] ([facility]) [address] [facility], [place], [address], 12/07/2024 06:53:02 12/07/19 25 12/07/2024 URINA LYSIS , ROUTI NE WBC esterase NEGATI VE negati ve Not Available [facility] ([facility]) [address] [place], [address], 12/07/2024 06:53:02 12/07/19 25 12/07/2024 URINA LYSIS , ROUTI NE protein NEGATI VE negati ve/tra ce Not Available [facility] ([facility]) [address] [facility], [place], [address], 12/07/2024 06:53:02 12/07/19 25 12/07/2024 URINA LYSIS , ROUTI NE glucose NEGATI VE negati ve Not Available [facility] ([facility]) [address] [facility], [place], [address], 12/07/2024 06:53:02 12/07/19 25 12/07/2024 URINA LYSIS , ROUTI NE ketones NEGATI VE negati ve Not Available [facility] ([facility]) [address] [facility], [place], [address], 12/07/2024 06:53:02 12/07/19 25 12/07/2024 URINA LYSIS , ROUTI NE occult blood NEGATI VE negati ve Not Available [facility] ([facility]) [address] [place], [address], 12/07/2024 06:53:02 12/07/19 25 12/07/2024 URINA LYSIS , ROUTI NE bilirubin NEGATI VE negati ve Not Available [facility] ([facility]) [address] [place], [address], 12/07/2024 06:53:02 12/07/1912/07/2024 URINA LYSIS , ROUTI NE urobilinogen ,semi-qn 0.2 mg/dL 0.2-1. 0 Not Available [facility] ([facility]) [address] [place], [address], 12/07/2024 06:53:02 12/07/1912/07/2024 URINA LYSIS , ROUTI NE nitrite, urine NEGATI VE negati ve Not Available [facility] ([facility]) [address] [facility], [place], [address], 12/07/2024 06:53:02 12/07/1912/07/2024 URINA LYSIS , ROUTI NE microscopic examination COMMEN T Micro scopi c not indic ated and not perfo rmed. Not Available [facility] ([facility]) [address] [place], [address], 12/07/2024 06:53:02 12/07/1912/07/2024 ALBUM IN/CR EATIN INE RATIO ,URIN E creatinine, urine 207.0 mg/dL notest ab. Not Available [facility] ([facility]) [address] [place], [address], 12/08/2024 07:35:05 12/07/1912/07/2024 ALBUM IN/CR EATIN INE RATIO ,URIN E albumin, urine 24.5 ug/mL notest ab. Not Available [facility] ([facility]) [address] [place], [address], 12/08/2024 07:35:05 12/07/19 25 12/07/2024 ALBUM IN/CR EATIN INE RATIO ,URIN E alb/creat ratio 12 mg/g_ creat 0-29 Abena l: 0 - 29 Moder ately incre ased: 30 - 300 Sever odilia incre ased: >300 Not Available [facility] ([facility]) [address] [place], [address], 12/08/2024 07:35:05 12/07/1912/08/2024 CT, NG, TRICH VAG BY SHELBY chlamydia by SHELBY NEGATI VE negati ve Not Available [facility] ([facility]) [address] [place], [address], 12/08/2024 07:35:06 12/07/1912/08/2024 CT, NG, TRICH VAG BY SHELBY gonococcus by SHELBY NEGATI VE negati ve Not Available [facility] ([facility]) [address] [place], [address], 12/08/2024 07:35:06 12/07/1912/08/2024 CT, NG, TRICH VAG BY SHELBY trich vag by SHELBY NEGATI VE negati ve Not Available [facility] ([facility]) [address] [place], [address], 12/08/2024 07:35:06 11/26/1911/24/2024 XR, wrist + hand No observ ation record ed. [facility] Scheduling [address] [place], [address], 11/28/2024 14:53:40 11/26/1911/24/2024 XR, wrist + hand No observ ation record ed. [facility] Scheduling [address] [place], [address], 11/28/2024 14:53:40 Result Notes None recorded. Problems Name Problem SNOMED Code Status Onset Date Resolution Date Notes Provider Name and Address Organization Details Recorded Time History of syphilis [id number] 108 Active 2023 Ailyn Metzger MD Attn: Accountpinky cantu,[email or web address] [facility], [place], [address], [place] [facility] 5 15:30:00 History of diabetes mellitus 343789241 Active 2023 Ailyn Metzger MD Attn: Shanipinky cantu,[email or web address] [facility], [place], [address], [place] [facility] 4 16:28:03 Disorder of lipid metabolism 959083955 Active 2023 Ailyn Metzger MD Attn: Shanipinky cantu,[email or web address] [facility], [place], [address], [place] [facility] 5 15:23:41 Uncontrolle d type 2 diabetes mellitus 043971856 Active 2024 Ailyn Metzger MD Attn: Karina cantu,[email or web address] [facility], [place], [address], [place] [facility] 5 15:30:05 Erectile dysfunction 594146311 Active 2024 Ailyn Metzger MD Attn: Karina cantu,[address] [facility], [place], [address], [place] [facility] 5 19:08:06 Problem Notes None recorded. Procedures Surgical History Date Name Laterality Status Provider Name and Address Organization Details Recorded Time 5 Generic Procedure completed Woo Joe MD [address] [place], [address], [place] [facility] 11/24/2024 15:26:06 Diabetic Foot Exam completed Ailyn Metzger MD Attn: Accounting,[address] [facility], [place], [address], [place] [facility] 11/21/2024 19:06:27 Imaging Results Imaging Date Name Status LastModified by Organiz [facility] Details LastModified Time 11/24/2024 XR, wrist + hand completed [facility] [address], [place], [address], 11/28/2024 14:53:40 11/24/2024 XR, wrist + hand completed [facility] [address] [place], [address], 11/28/2024 14:53:40 Procedure Notes None recorded. Medical Equipment None Reported. [...] BY MOUTH ONCE DAILY WITH A MEAL 11/21 completed Not Available Not Available Not Available Lantus U-100 Insulin 100 unit/mL subcutaneou s solution INJECT 25 UNITS UNDER THE SKIN TWICE DAILY active Not Available Not Available No t Available Kenalog 40 mg/mL suspension for injection Take 1 mL by injection route. 2024 active Not Available Not Available Not Avai lable Humalog U-100 Insulin 100 unit/mL subcutaneou s solution INJECT 7 UNITS UNDER THE PLUS SLIDING SCALE THREE TIMES DAILY WITH MEALS AND PER SLIDING SCALE AT BEDTIME. MAXIMUM DAILY DOSE IS 53 UNITS active Not Available Not Available No t Available erythromyci n 5 mg/gram (0.5 %) eye ointment APPLY 1 CM RIBBON INTO THE LOWER CONJUNCTI CHAPIS SAC(S) IN THE AFFECTED EYE(S) BY OPHTHALMI C ROUTE 3 TIMES PER DAY 04/06 completed Not Available Not Available Not Available Viagra 100 mg tablet Take 0.5 tablets every day by oral route as needed for 30 days, for Erectile Dysfuncti om. 2024 active Not Available Not Available Not Avai lable Lantus Solostar U-100 Insulin 100 unit/mL (3 mL) subcutaneou s pen Inject 25 units every day by subcutane ous route at bedtime for 30 days, for DM. 2024 active Not Available Not Available Not Avai lable Humalog KwikPen (U-100) Insulin 100 unit/mL subcutaneou s INJECT 7 UNITS UNDER THE SKIN PLUS SLIDING SCALE THREE TIMES DAILY WITH MEALS AND PER SLIDING SCALE AT BEDTIME. MAXIMUM DAILY DOSE IS 53 UNITS 11/22 completed Not Available Not Available Not Available OneTouch Verio test strips USE TO TEST BLOOD SUGAR THREE TIMES DAILY active Not Available Not Available No t Available TRUEplus Insulin 0.5 mL 30 gauge x 5/16 syringe USE DIRECTED TO INJECT INSULIN 6 TIMES DAILY active Not Available Not Available No t Available TRUEplus Insulin 1 mL 31 gauge x 5/16 syringe USE THREE TIMES DAILY active Not Available Not Available No t Available OneTouch Verio Flex Meter USE DIRECTED active Not Available Not Available No t Available Droplet Pen Needle 31 gauge x 3/16 USE WITH INSULIN INJECTION S FIVE TIMES DAILY active Not Available Not Available No t Available OneTouch Delica Plus Lancet 33 gauge USE DIRECTED TO CHECK GLUCOSE FOUR TIMES DAILY active Not Available Not Available No t Available OneTouch Delica Plus Lancet 30 gauge TEST BLOOD SUGAR THREE TIMES DAILY active Not Available Not Available No t Available Vitals Date Recorded Body height Body mass index (BMI) Body weight Heart rate Oxygen saturation Oxygen saturation in Arterial blood by Pulse oximetry Respiratory rate Body temperature Systolic blood pressure Diastolic blood pressure Provider Name and Address Organization Details Last Updated DateTime 4 167.64 cm 26.3 kg/m2 71606.2 g 72 /min 98 % 98 % 14 /min 98.5 [degF] 130 mm[Hg] 76 mm[Hg] Aparnaher Dodson [facility] 4 10:33:51 Date Recorded Body height Body mass index (BMI) Body weight Oxygen saturation Oxygen saturation in Arterial blood by Pulse oximetry Heart rate Respiratory rate Systolic blood pressure Diastolic blood pressure Provider Name and Address Organization Details Last Updated DateTime 4 167.64 cm 27.3 kg/m2 61500.1 1 g 98 % 98 % 88 /min 16 /min 140 mm[Hg] 90 mm[Hg] Aparnaher Dodson [facility] 4 11:30:37 Date Recorded Body height Body mass index (BMI) Body weight Heart rate Oxygen saturation Oxygen saturation in Arterial blood by Pulse oximetry Body temperature Systolic blood pressure Diastolic blood pressure Provider Name and Address Organization Details Last Updated DateTime 5 167.64 cm 28.1 kg/m2 39371.0 7 g 94 /min 97 % 97 % 98.3 [degF] 130 mm[Hg] 76 mm[Hg] Aparna Dodson MA [facility] 5 15:14:04 Date Recorded Body height Respiratory rate Oxygen saturation Oxygen saturation in Arterial blood by Pulse oximetry Pain severity - 0-10 verbal numeric rating [Score] - Reported Heart rate Body mass index (BMI) Body weight Systolic blood pressure Diastolic blood pressure Provider Name and Address Organization Details Last Updated DateTime 5 167.64 cm 16 /min 98 % 98 % 4 72 /min 28.4 kg/m2 81258.2 6 g 156 mm[Hg] 85 mm[Hg] Dave Maria MA [facility] 5 14:53:12 Date Recorded Body height Body mass index (BMI) Body weight Body temperature Respiratory rate Oxygen saturation Oxygen saturation in Arterial blood by Pulse oximetry Heart rate Pain severity - 0-10 verbal numeric rating [Score] - Reported Systolic blood pressure Diastolic blood pressure Provider Name and Address Organization Details Last Updated DateTime 5 167.64 cm 27.8 kg/m2 84255.8 9 g 97.2 [degF] 18 /min 96 % 96 % 72 /min 1 134 mm[Hg] 84 mm[Hg] Roya Morales LPN [facility] 5 15:10:20 Social History Question Answer Notes LastModified by Organizat ion Details LastModified Time Tobacco Smoking Status Current Every Day Smoker Aparna Dodson MA [facility], [facility] 02/25/2024 10:30:34 What Is Your Level Of [...] Date Of Your Most Recent Tobacco Screening? 12/08/2024 [email or web address] Information not available 12/08/2024 What Is Your Current Pack Years? 20-29packyears [...] What Date Was Tobacco Cessation Counseling Provided? 11/24/2024 [email or web address] Information not available 11/24/2024 How Many Years Have You Smoked Tobacco? [...] Skin Problems N Anemia N Heart Attack ([place]) N Anxiety Disorder N Diabetes Y Muscle, [...] Time Tdap 02/25/2024 completed Aparna Dodson MA [facility], [place] - [facility] 02/25/2024 12:09:30 Past Encounters Encounter ID Performer Location Encounter Start Date Encounter Closed Date Diagnosis/Indication Diagnosis SNOMED-CT Code Diagnosis ICD10 Code Diagnosis Note [id number] Ailyn Metzger MD [facility] (Adult Med) [address] [place] [address] 02/25/2024 10:19:08 03/06/2024 10:34:24 General examination of patient 386682186 Z00.01 Venereal d isease screening 315599969 Z11.3 History of syphilis 1087 853796 269818 Z86.19 2021 s/p IM treatment in [place] History of diabetes mellitus 294367554 Z86.39 Administra tion of diphtheria, pertussis, and tetanus vaccine 910734216 Z23 Pain of bi lateral eyes 7471513905 27700 H57.13 Trauma +/- infectionO floxacinEy e patch Nicotine dependence 5629 4008 F17.200 Impaired dentition 44774 4008 K03.9 [id number] Ailyn Metzger MD [facility] (Adult Med) [address] [place] [address] 04/06/2024 11:01:35 04/07/2024 08:18:08 History of diabetes mellitus 737267317 Z86.39 Proteinuria 08558931 R80 .9 Herpes simplex 04361005 B00.9 Detailed discussion about asymptomat ic shedding and prophylact ic treatment Elevated blood-pressure reading without diagnosis of hypertension 586327458 R03.0 Normal on his initial visit but quite elevated today, it may be due to his stress levels. Pain of right wrist 3169 016784 74937 M25.531 Serum crea tinine above reference range 130471539 R79.89 Disorder o f lipid metabolism 665657487 E78.9 History of syphilis 1087 849140 638801 Z86.19 RPR 1:2His titer is lowThis was discussed in detail OV 022 s/p IM treatment in [place] [id number] MD [facility] (Adult Med) [address] [place] [phone] 0 11/21/2024 14:56:57 11/22/2024 15:44:57 Uncontrolled type 2 diabetes mellitus 878301615 E11.649 Follow-up visit 91577117 9 Z09 Body mass index 25-29 - overweight 524861577 Z68.28 General ex amination of patient 441450869 Z00.01 History of syphilis 1087 126292 251328 Z86.19 OV 04/06/2024 UT 1:2His titer is lowThis was discussed in detail OV 022 s/p IM treatment in [place] Erectile dysfunction 860 972145 F52.21 Start Viagra, side effects were discussed [id number] [facility] [address] [place] [address] 11/24/2024 14:45:58 11/24/2024 15:32:21 Thumb joint painful on movement 637122582 M79.641 discussed with patient Kenalog injection as well as we will get some x-rays of his right hand and wrist. Discussed this with the patient in layman's terms patient would like to proceed. 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 We will refer patient orthopedic hand surgeon they can further evaluate And treat this discussed this with the patient.. Health Concerns Section Related Observation LastModified by Organization Detai ls LastModified Time None Recorded Concern Status LastModified by Organization Details LastModified Time None Recorded Advance Directives Directive None Recorded Payers Encounter Date Sequence Insurance Name Policy Number Policy Cruz Covered Member ID Cruz Member ID Guarantor Name 02/25/2024 1 [place] [facility] [place] [facility] [place] Holland Wells [id number] Holland Wells 04/06/2024 1 [place] Holland Wells [id number] Holland Wells 04/06/2024 1 [place] [facility] (MEDICAID REPLACEMENT - HMO) [id number] Holland Wells [id number] Holland Wells 11/21/2024 1 [place] [facility] [place] [facility] [place] Holland Wells [id number] Holland Wells 11/21/2024 2 [place] [id number] Holland Wells [id number] Holland Wells 11/24/2024 1 [place] [facility] [place] [facility] [place] Holland Wells [id number] Holland Wells 11/24/2024 1 [place] [facility] [place] ELECT SRO Holland Wells [id number] Holland Wells 12/08/2024 1 [place] [facility] [place] OF PUBLIC [facility] Holland Wells [id number] Holland Wells Notes Date Note Type Note Provider Name and Address Organization Details Recorded Time 4 text/html My primary check up My eye, I had got in [...] with alcohol poisoning Ailyn Metzger MD Attn: Accounting, [address] [place], [address], [facility] 02/25/2024 12:55:23 4 text/html Can you explain this to me, [...] ulcer and received gluteal injections once in [place]. He was retested at the ER in February, and told that his titer was low. He has no rash, genital ulcers or penile D/C. He has no previous diagnosis of genital Herpes, he however has had fever blisters in the past. Ailyn Metzger MD Attn: Accounting,[address] [facility], [place], [address], [facility] 04/06/2024 16:32:28 5 text/html Diabetes F/UReported bypatient.Review finger sticks:fastin; pre lunch: ; post lunch: 138; pre dinner: Labs:last A1C result: 10.2% Context:normal range of home blood sugars (in the low 100s); seeing eye doctor regularly; checking feet regularly; not missing doses of medications; no side effects from medications Associated Symptoms:no weight loss; no dizziness; no sweats; no headaches; no confusion; no increased thirst; no increased appetite; no increased urination; no blurred vision; no numbness of feet; no calluses on feet;weight gain (5 lbs)Erectile DysfunctionReported bypatient.Quality:sympto ms worse in the evening Severity:worsening; severe Duration:frequent/every time Context:able to achieve penetration 50% of the time;never able to maintain a hard erection Associated Symptoms:no dysuria; no penile discharge; normal libido I have been having difficulties down there Recently admitted 11/01/2024-11/02/2024 with DKA, PAUL and a HBA1C of 10.2%. He is doing well and can't explain what happened but he had high blood sugars again and this may be the second time that he was able to control the disease with an exercise regimen and then have it flare back up again. Ailyn Metzger MD Attn: Accounting,[address] [place], [address], [facility] 11/21/2024 19:09:54 5 text/html patient is a 39-year-old male who presents with pain in the right thumb base. Patient has had this pain for several months to a year and has gotten worse. Patient says it is worse when he grabs things are holds things and better when he rests it. Patient denies any fever chills or bleeding or discharge Woo Joe MD [address] [place], [address], [facility] 11/24/2024 15:26:45 5 text/html patient is 39 year old male with pain in the right wrist. Performed x-ray last visit and discussed with him that he most likely had an old scaphoid fracture. Patient remembers trauma he had about 10 years ago the probably caused this. Patient did not seek medical attention at that time. Patient said that that is when some of the problems he has started. Patient denies any fever chills or bleeding or discharge Woo Joe MD [address] [place], [address], [facility] 12/08/2024 15:22:54
--- OUTSIDE RECORDS SUMMARY | 2024-12-21 11:29 | XMS_ITS | Clinical Summary ---
Author Organization [facility] Address [address] [place] [address] Phone Care Team Providers Care Director Process Engineering Name Role Phone Provider, None Primary Care [...] of Treatment Not on file Care Teams Director Process Engineering Relationship Specialty Start Date End Date Provider, None DC PCP - General 03/22/22
--- NOTE | 2024-12-21 11:45 | ED_ITS ---
HPI - General Adult General Chief complaint: Unspecified Stated complaint: left sided numbness for 24 hrs Time Seen by Provider: 12/21/24 11:24 History of Present Illness HPI narrative: Patient 39-year-old gentleman presents emergency department chief complaint of left-sided facial droop and left-sided facial numbness. Patient reports symptoms started yesterday reports that it is difficult to swallow or smoke the patient reports his forehead involvement patient reports no other weakness Related Data Allergies Allergy/AdvReac Type Severity Reaction Status Date / Time No Known Allergies Allergy Verified 10/30/24 11:34 Review of Systems Review of Systems: A 10 system review of systems was completed on the patient and is negative except for what is stated in the HPI. Nursing and ancillary documentation was reviewed. [facility] Past Medical History Medical History Tobacco use Diabetes Surgical History Surgical History No history of previous surgery Social History Social History Smoking status: Current every day smoker Alcohol intake: current Substance use: former Substance use type: crack/cocaine Do You Feel Safe in your Home?: Yes Lack of Transportation: YES Lack of Food: Never True Current Housing: I Have Housing Concerned About Future Housing: No Difficulty Paying Gas/Electric Bills: No Difficulty Paying for Meds: No Currently Unemployed: No Education: Decline to Answer Difficulty w/ Childcare or Family Care: No Spiritual care concerns: No Exam Narrative: GENERAL: Well-appearing, well-nourished, and in no acute distress. HEAD: Normocephalic, atraumatic. EYES: PERRLA and EOMI. ENT: Nares clear, no rhinorrhea or epistaxis. Mucous membranes moist. NECK: Supple. CHEST: Clear to auscultation. No respiratory distress. HEART: Regular rate and rhythm. No murmur heard. Normal peripheral pulses. ABDOMEN: Soft, nontender, nondistended, normal active bowel sounds. EXTREMITIES: Normal range of motion. No edema. SKIN: Warm, dry, no rash. NEURO: No focal deficits other than a left-sided facial droop involving the forehead.. Alert and oriented x3. PSYCH: Normal mood and affect. Course Vital Signs Vital signs: Vital Signs Temperature 36.8 C 12/21/24 10:54 Pulse Rate 74 12/21/24 10:54 Respiratory Rate 18 12/21/24 10:54 Blood Pressure 132/77 12/21/24 10:54 Pulse Oximetry 96 12/21/24 10:54 Oxygen Delivery Room Air 12/21/24 10:54 Temperature 36.8 C 12/21/24 10:54 Pulse Rate 74 12/21/24 10:54 Respiratory Rate 18 12/21/24 10:54 Blood Pressure 132/77 12/21/24 10:54 Pulse Oximetry 96 12/21/24 10:54 Oxygen Delivery Room Air 12/21/24 10:54 Medical Decision Making MDM Narrative Medical decision making narrative: The patient's exam is consistent with acute Garcia's palsy the patient was started on steroids and will be started on antivirals Vital Signs Vital Signs: Vital Signs Temperature 36.8 C 12/21/24 10:54 Pulse Rate 74 12/21/24 10:54 Respiratory Rate 18 12/21/24 10:54 Blood Pressure 132/77 12/21/24 10:54 Pulse Oximetry 96 12/21/24 10:54 Oxygen Delivery Room Air 12/21/24 10:54 Temperature 36.8 C 12/21/24 10:54 Pulse Rate 74 12/21/24 10:54 Respiratory Rate 18 12/21/24 10:54 Blood Pressure 132/77 12/21/24 10:54 Pulse Oximetry 96 12/21/24 10:54 Oxygen Delivery Room Air 12/21/24 10:54 Discharge Plan Discharge Clinical Impression: Garcia's palsy Patient Disposition: Home Condition: Stable Instructions: Antibiotic Form, Garcia Palsy (ED) Patient Language: Pashto Prescriptions: New prednisone 20 mg tablet 80 mg PO DAILY 5 Days Qty: 20 0RF valacyclovir 1 gram tablet 1,000 mg PO Q8H 7 Days Qty: 21 0RF No Action insulin glargine [Lantus U-100 Insulin] 100 unit/mL Solution 25 unit subcut BID Qty: 20 2RF insulin aspart U-100 [Novolog U-100 Insulin aspart] 100 unit/mL Solution 7 unit subcut TIDWM Qty: 10 0RF insulin aspart U-100 [Novolog U-100 Insulin aspart] 100 unit/mL Solution 4 - 8 unit subcut TIDWM Qty: 10 1RF Protocol: Insulin Corrective High-Dose Condition: glucose < 70 mg/dl Dose/Route: Follow hypoglycemia order Condition: glucose 70-200 mg/dl Dose/Route: No additional insulin Condition: glucose 201-250 mg/dl Dose/Route: 4 units sub-Q Condition: glucose 251-300 mg/dl Dose/Route: 5 units sub-Q Condition: glucose 301-350 mg/dl Dose/Route: 6 units sub-Q Condition: glucose 351-400 mg/dl Dose/Route: 8 units sub-Q Condition: glucose > 400 mg/dl Dose/Route: Call Protocol Text: *No Correction Dose at Bedtime* Rx Instructions: Instruction glucose < 70 mg/dl Follow hypoglycemia order glucose 70-200 mg/dl No additional insulin glucose 201-250 mg/dl 4 units sub-Q glucose 251-300 mg/dl 5 units sub-Q glucose 301-350 mg/dl 6 units sub-Q glucose 351-400 mg/dl 8 units sub-Q glucose > 400 mg/dl Call insulin aspart U-100 [Novolog U-100 Insulin aspart] 100 unit/mL Solution 2 - 4 unit subcut HS Qty: 10 0RF Protocol: Insulin Corrective High-Dose Condition: glucose < 70 mg/dl Dose/Route: Follow hypoglycemia order Condition: glucose 70-200 mg/dl Dose/Route: No additional insulin Condition: glucose 201-250 mg/dl Dose/Route: 2 units sub-Q Condition: glucose 251-300 mg/dl Dose/Route: 2 units sub-Q Condition: glucose 301-350 mg/dl Dose/Route: 3 units sub-Q Condition: glucose 351-400 mg/dl Dose/Route: 4 units sub-Q Condition: glucose > 400 mg/dl Dose/Route: Call Rx Instructions: Instruction glucose < 70 mg/dl Follow hypoglycemia order glucose 70-200 mg/dl No additional insulin glucose 201-250 mg/dl 2 units sub-Q glucose 251-300 mg/dl 2 units sub-Q glucose 301-350 mg/dl 3 units sub-Q glucose 351-400 mg/dl 4 units sub-Q glucose > 400 mg/dl Call (BRUCE) blood-glucose meter [Way2Payuch Verio Flex meter] [facility] Qty: 1 0RF Rx Instructions: May substitute to in-stock meter and/or covered by insurance. Use As Directed (DME) OneTouch Verio test strips Strip Qty: 1 0RF Rx Instructions: May substitute to in-stock and/or covered by insurance strips. Use As Directed (DME) lancets [OneTouch Delica Plus Lancet] [facility] Q[facility]: 1 0RF Rx Instructions: May substitute to in-stock and/or covered by insurance lancets. Use As Directed (DME) insulin syringe-needle U-100 [Easy Touch Insulin Syringe] 0.5 mL 30 gauge x 5/16 syringe See Rx Instructions .Route Qty: 150 0RF Rx Instructions: As directed (DME) diabetic supplies, miscellan. [facility] See Rx Instructions .Route Qty: 25 0RF Rx Instructions: As directed (DME) blood-glucose meter [OneTouch Verio Flex meter] [facility] Qty: 1 0RF Rx Instructions: May substitute to in-stock meter and/or covered by insurance. Use As Directed (DME) OneTouch Verio test strips Strip Qty: 1 0RF Rx Instructions: May substitute to in-stock and/or covered by insurance strips. Use As Directed (DME) lancets [OneTouch Delica Plus Lancet] [facility] Qty: 1 0RF Rx Instructions: May substitute to in-stock and/or covered by insurance lancets. Use As Directed Follow-up/Referrals: Asher Beatty DO [Physician] - UNKNOWN,DOCTOR [Primary Care Provider] - Time of Disposition: 11:48
== END 2024-12-21 11:59 | disposition home or self-care (01) ==
PROVIDERS: Emergency Provider Emergency Medicine
DX: G51.0 Bell's palsy (principal); E11.9 Type 2 diabetes mellitus without complications; F17.200 Nicotine dependence, unspecified, uncomplicated
CPT/HCPCS: 99283